=== PATIENT | female | born 1965 | race Caucasian/White ===

== ENCOUNTER 2019-11-23 10:11 | Outpatient (REF) | payer OTHER, SELFPAY ==
[2019-11-23 12:37] LABS: Estimated Average Glucose 117 mg/dL; Hemoglobin A1c % 5.7 %
[2019-11-23 12:44] LABS: Alanine Aminotransferase 34 U/L (0-31); Albumin Level 4.7 g/dL (3.5-5.0); Alkaline Phosphatase 50 U/L (39-117); Aspartate Amino Transferase 21 U/L (5-31); Bilirubin Direct 0.3 mg/dL (0.0-0.5); Bilirubin Total 1.2 mg/dL (0.0-1.0); Total Protein 7.4 g/dL (6.5-8.0)
[2019-11-23 12:47] LABS: Alanine Aminotransferase 34 U/L (0-31); Anion Gap 13 (12-20); Aspartate Amino Transferase 22 U/L (5-31); Blood Urea Nitrogen 18 mg/dL (9-16); Calcium 9.5 mg/dL (8.4-10.2); Carbon Dioxide 27 mmol/L (22-29); Chloride 106 mmol/L (96-108); Cholesterol 225 mg/dL; Estimated Glomerular Filt Rate > 60; Glucose Fasting 110 mg/dL (60-99); HDL Cholesterol 52 mg/dL; LDL Cholesterol Calculated 153 mg/dl; Potassium 4.5 mmol/l (3.3-5.1); Sodium 141 mmol/L (135-145); Triglycerides 104 mg/dL
[2019-11-23 12:54] LABS: Vitamin D 25-OH Total 30.4 ng/mL (>30)
== END 2019-11-23 10:12 | disposition home or self-care (01) ==
LOC: HO.LAB 10:11
PROVIDERS: PCP Internal Medicine; Visit Provider Podiatrist
DX: R73.01 Impaired fasting glucose (principal); E78.5 Hyperlipidemia, unspecified; Z78.0 Asymptomatic menopausal state; B35.1 Tinea unguium
CPT/HCPCS: 80048; 80061; 80076; 82306; 83036; 84450; 84460

== ENCOUNTER 2020-01-25 14:49 | Emergency (ER) | payer OTHER, SELFPAY ==
[2020-01-25 14:52] VITALS: BP 155/105; PULSE 94; RESP 18; TEMP 36.7; O2SAT 100; BMI 28.1
--- NOTE | 2020-01-25 15:40 | ED_ITS ---
HPI - General Adult General Chief complaint: General Medical Stated complaint: reaction Time Seen by Provider: 01/25/20 15:40 History of Present Illness HPI narrative: Patient complains of brief episode of dizziness after receiving an injection where she felt lightheaded, tingling in her tongue, but never felt short of breath or faint, never passed out never had any rash Related Data Allergies Allergy/AdvReac Type Severity Reaction Status Date / Time ampicillin [AMPICILLIN] Allergy Unknown HIVES, Verified 01/25/20 14:56 rash on mouth penicillin V Allergy Unknown rash on Verified 01/25/20 14:56 mouth Penicillins [PENICILLINS] Allergy Unknown HIVES Verified 01/25/20 14:56 rosuvastatin Allergy Unknown myalgia, ^ Verified 01/25/20 14:56 cpk Sulfa (Sulfonamide Allergy Unknown ALTERED Verified 01/25/20 14:56 Antibiotics) WBC, blood [SULFA (SULFONAMIDE cells ANTIBIOTICS)] level abnormal Ampicillin Allergy Unknown Hives Uncoded 01/13/18 00:00 Sulfa Drugs Allergy Unknown white Uncoded 01/13/18 00:00 blood cell reaction Review of Systems Review of Systems: No headache no numbness no weakness no confusion no chest pain no palpitations no shortness of breath no facial swelling no tongue swelling no difficulty breathing or swallowing Yes all other systems are reviewed and are negative PMFSH Past Medical History Source: nursing notes reviewed Medical History (Updated 01/25/20 @ 15:41 by LAYO Crump) No known health problems Social History Social History Advance Directives: No Advance Directives Information Provided: Yes Physical Exam Vital Signs: Vital Signs: Last Vital Signs Temp 98.0 F 01/25/20 14:52 Pulse 94 01/25/20 14:52 Resp 18 01/25/20 14:52 BP 155/105 H 01/25/20 14:52 Pulse Ox 100 01/25/20 14:52 Body Mass Index 28.1 Comfortable relaxed and cooperative, no distress, speaking full sentences Pupils equal round react flight Pharynx is clear with no swelling, mucous membranes are moist Neck is supple Chest is clear to auscultation bilaterally with full symmetric equal breath sounds Heart rate and rhythm regular no murmurs Extremities is full range of motion x4 Neuro no focal deficit, speech and gait are normal, balance is normal, motor is 5 over 5 times 4 Course Course Course Narrative: Patient most likely experienced a mild vasovagal episode and is asymptomatic now and feels fine Discharge Plan Discharge Clinical Impression: Vasovagal episode Patient Disposition: Home, Self-Care Additional Instructions: Reaction was probably from a brief drop in blood pressure related to getting y our shot, it does not sound like an allergic reaction or any serious or dangerous reaction No treatment is needed as you feel back to normal now Return any time any concerns Interventions: ED Discharge Assessment Last Done: 01/25/20 15:47 Discharge Date/Time: 01/25/20 15:47
== END 2020-01-25 15:47 | disposition home or self-care (01) ==
PROVIDERS: Emergency Provider Emergency Medicine Emergency Medical Services; PCP Internal Medicine
DX: R55 Syncope and collapse (principal)
CPT/HCPCS: 99283

== ENCOUNTER 2020-02-20 13:09 | Outpatient (REF) | payer OTHER, SELFPAY ==
--- NOTE | 2020-02-20 13:14 | MM_ITS ---
EXAMINATION: MM DIAGNOSTIC DIGITAL MAMMOGRAPHY, LEFT CLINICAL INFORMATION: Short interval follow-up probable benign parenchymal asymmetry upper outer left breast. Due for yearly. Prior history fibrocystic changes with cyst aspiration at outside facility. The lifetime risk of breast cancer based on the Tyrer-Cuzick Model is 12%. COMPARISON: Mammography: 07/10/2019, 01/25/2019 (diagnostic, BI-RADS 3), 04/03/2018; outside mammography 05/15/2013, 04/01/2011, 09/18/2009, 09/05/2008 ([facility]). TECHNIQUE: Digital mammography is performed in craniocaudal and mediolateral oblique views along with computer-aided detection (CAD). Additional exaggerated CC, spot MLO x2, and ML views are obtained. FINDINGS: The breasts are heterogeneously dense, which may obscure small masses (ACR BI-RADS breast composition Category c). Parenchymal pattern is similar to prior exam. There is no developing density or interval mass or architectural abnormality. There are no abnormal calcifications. Left breast will be reassessed again at time of annual bilateral mammography, due in 6 months. Results are discussed with the patient at time of visit. MM/MM diagnostic mammo unilat LT IMPRESSION: No significant changes from prior diagnostic exam. No developing density. ASSESSMENT: BI-RADS 3: Probably Benign RECOMMENDATION: Diagnostic mammography at time of bilateral annual exam, due in 6 months. This patient's information was entered into a reminder system with a target due date for their next mammogram.
== END 2020-02-20 13:10 | disposition home or self-care (01) ==
LOC: HO.MAMMO 13:09
PROVIDERS: PCP Internal Medicine; Visit Provider Internal Medicine
DX: N64.9 Disorder of breast, unspecified (principal)
CPT/HCPCS: 77065

== ENCOUNTER 2020-09-02 13:27 | Outpatient (REF) | payer OTHER, SELFPAY ==
--- NOTE | ~2020-09-02 | MM_ITS ---
EXAMINATION: MM DIAGNOSTIC DIGITAL BREAST TOMOSYNTHESIS, BILATERAL US DIAGNOSTIC ULTRASOUND BREAST, RIGHT CLINICAL INFORMATION: Due for yearly. Also follow-up probable benign parenchymal asymmetry upper outer left breast. Prior history fibrocystic changes with cyst aspiration at outside facility. The lifetime risk of breast cancer based on the Tyrer-Cuzick Model is 18%. COMPARISON: Mammography: 02/20/2020, 07/10/2019, 01/25/2019 (diagnostic, BI-RADS 3), 04/11/2018, 04/03/2018; outside mammography 05/15/2013, 04/01/2011, 09/18/2009 ([facility] Diagnostic right breast ultrasound 04/11/2018 and diagnostic left breast ultrasound 01/25/2019. TECHNIQUE: Digital breast tomosynthesis is performed in both the craniocaudal and mediolateral oblique views along with computer-aided detection (CAD). Synthesized 2D images are generated from the tomosynthesis. Additional views are obtained: Exaggerated left CC, spot left ML. Ultrasound right breast is targeted to the upper outer quadrant. Grayscale imaging and color Doppler are performed without and with harmonics. FINDINGS: The breasts are heterogeneously dense, which may obscure small masses (ACR BI-RADS breast composition Category c). Left breast parenchymal pattern is similar to prior studies. There is no developing density or interval architectural abnormality or mass or abnormal calcifications. Right breast has smooth partially obscured mass mid upper outer quadrant measuring 2 cm, likely enlarging cyst noted previously. The remainder of the right breast shows no developing density or architectural abnormality or abnormal calcifications. The bilateral axilla and skin contours are unremarkable. Ultrasound right breast demonstrates a benign cyst mid 9:00 position 6 cm from nipple corresponding to finding on mammography and measuring 2.0 x 1.3 x 1.4 cm. There is incomplete fine avascular internal septation. No solid component or debris. No peripheral or internal color flow. There is increased through-transmission of sound. The remainder of the targeted area shows no solid mass or architectural abnormality or focal duct ectasia. Results are discussed with the patient at time of visit. Management plan is for diagnostic bilateral mammography at next bilateral annual exam to conclude long-term surveillance of the left breast initially noted on 01/25/2019. MM/MM tomosynthesis diagnostic BI IMPRESSION: 1. Left: No developing density or interval suspicious changes. 2. Right: Benign cyst mid 9:00 position 2.0 cm. Otherwise unremarkable. ASSESSMENT: BI-RADS 3: Probably Benign RECOMMENDATION: Diagnostic mammography at time of next annual exam, due in 12 months. This patient's information was entered into a reminder system with a target due date for their next mammogram.
== END 2020-09-02 13:28 | disposition home or self-care (01) ==
LOC: HO.MAMMO 13:27
PROVIDERS: Visit Provider Internal Medicine
DX: N64.89 Other specified disorders of breast (principal)
CPT/HCPCS: 76641; 77062; 77066

== ENCOUNTER 2021-07-31 08:18 | Outpatient (REF) | payer OTHER, SELFPAY ==
[2021-07-31 11:45] LABS: Alanine Aminotransferase 43 U/L (0-31); Anion Gap 13 (12-20); Aspartate Amino Transferase 27 U/L (5-31); Blood Urea Nitrogen 19 mg/dL (9-16); Calcium 9.3 mg/dL (8.4-10.2); Carbon Dioxide 26 mmol/L (22-29); Chloride 106 mmol/L (96-108); Cholesterol 225 mg/dL; Estimated Glomerular Filt Rate 55; Glucose Fasting 133 mg/dL (60-99); HDL Cholesterol 45 mg/dL; LDL Cholesterol Calculated 161 mg/dl; Potassium 4.6 mmol/L (3.3-5.1); Sodium 140 mmol/L (135-145); Triglycerides 95 mg/dL
[2021-07-31 11:58] LABS: Vitamin D 25-OH Total 23.8 ng/mL (>30)
[2021-07-31 12:02] LABS: Estimated Average Glucose 123 mg/dL; Hemoglobin A1c % 5.9 %
== END 2021-07-31 08:19 | disposition home or self-care (01) ==
LOC: HO.HMGCLDS 08:18
PROVIDERS: Visit Provider Internal Medicine
DX: Z00.01 Encounter for general adult medical examination with abnormal findings (principal); I10 Essential (primary) hypertension; R73.01 Impaired fasting glucose; E78.5 Hyperlipidemia, unspecified
CPT/HCPCS: 36415; 80048; 80061; 82306; 83036; 84450; 84460

== ENCOUNTER 2021-09-08 09:13 | Outpatient (REF) | payer OTHER, SELFPAY ==
--- NOTE | ~2021-09-08 | MM_ITS ---
EXAMINATION: MM DIAGNOSTIC DIGITAL BREAST TOMOSYNTHESIS, BILATERAL CLINICAL INFORMATION: Due for yearly. Also follow-up probable benign parenchymal asymmetry upper outer left breast, initially noted on diagnostic mammography 01/25/2019. Prior history fibrocystic changes with cyst aspiration at outside facility. The lifetime risk of breast cancer based on the Tyrer-Cuzick Model is 18%. COMPARISON: Mammography: 09/02/2020, 02/20/2020 07/10/2019, 01/25/2019 (diagnostic, BI-RADS 3), 04/11/2018, 04/03/2018, outside mammography 05/15/2013 ([facility]). TECHNIQUE: Digital breast tomosynthesis is performed in both the craniocaudal and mediolateral oblique views along with computer-aided detection (CAD). Synthesized 2D images are generated from the tomosynthesis. Additional views are obtained: Spot left CC, rolled left CC x2. FINDINGS: The breasts are heterogeneously dense, which may obscure small masses (ACR BI-RADS breast composition Category c). Parenchymal pattern is similar to prior studies and there is no significant mass or developing density or architectural abnormality. This concludes long-term surveillance upper-outer quadrant left breast. The cyst mid upper outer right breast noted on prior mammography has resolved. There are no abnormal calcifications. The axilla and skin contours are unremarkable. Results are discussed with the patient at time of visit. MM/MM tomosynthesis diagnostic BI IMPRESSION: No mammographic evidence of malignancy. ASSESSMENT: BI-RADS 2: Benign RECOMMENDATION: Routine annual mammography screening. This patient's information was entered into a reminder system with a target due date for their next mammogram.
== END 2021-09-08 09:14 | disposition home or self-care (01) ==
LOC: HO.MAMMO 09:13
PROVIDERS: PCP Internal Medicine; Visit Provider Internal Medicine
DX: N60.02 Solitary cyst of left breast (principal)
CPT/HCPCS: 77062; 77066

== ENCOUNTER 2021-10-21 16:35 | Outpatient (REF) | payer OTHER, SELFPAY ==
[2021-10-24 00:12] LABS: HPV mRNA E6/E7 rflx Not Detected (Not Detected)
== END 2021-10-21 16:36 | disposition home or self-care (01) ==
LOC: HO.LNP 16:35
PROVIDERS: Visit Provider Advanced Practice Midwife
DX: Z01.419 Encounter for gynecological examination (general) (routine) without abnormal findings (principal)
CPT/HCPCS: 87624; 88142

== ENCOUNTER 2021-11-11 09:31 | Outpatient (REF) | payer OTHER, SELFPAY ==
--- NOTE | ~2021-11-11 | MM_ITS ---
EXAMINATION: BONE DENSITOMETRY CLINICAL INDICATION: Menopause. COMPARISON: Baseline BD dated 04/12/2018. TECHNIQUE: Using a [employer] Tele[employer] DXA System (software version: 13.1) manufactured by [employer], dual-energy x-ray absorptiometry was performed of the lumbar spine and left hip. The images are of good technical quality. Summary results are attached. FINDINGS: AP SPINE L1-L4: Current: BMD 1.193 g/cm2, Z-score 0.4, T-score 0.1, normal, 4.4% decrease from baseline (<5% change is not significant). Baseline: BMD 1.248 g/cm2. LEFT FEMUR, NECK: Current: BMD 0.897 g/cm2, Z-score -0.4, T-score -1.0, normal. Baseline: BMD 0.878 g/cm2. LEFT FEMUR, TOTAL: Current: BMD 0.959 g/cm2, Z-score -0.1, T-score -0.4, normal, 0.5% increase from baseline (<5% change is not significant). Baseline: BMD 0.954 g/cm2. IDENTIFIED RISK FACTORS: Osteoporosis. Menopause. HISTORY OF FRACTURE: None listed. MEDICATIONS: Calcium supplement and/or multivitamin. Vitamin D. MM/XR DEXA axial skeleton IMPRESSION: 1. DIAGNOSIS: Normal bone density based on the lowest T-score value of -1.0 in the femoral neck applying World Health Organization criteria. 2. 10 10-YEAR FRACTURE RISK PREDICTION, FRAX: According to the guidelines, FRAX calculation should only be performed on patients in the osteopenia bone density category. Therefore, FRAX was not performed on this patient. 3. Treatment Recommendations: NOF guidelines recommend consideration for treatment in postmenopausal women and men age 50 and older presenting with the following: -A hip or vertebral (clinical or morphometric) fracture. -T-score less than or equal to -2.5 at the femoral neck or spine after appropriate evaluation to exclude secondary causes. -Low bone mass at the hip or spine and a 10-year fracture probability by FRAX of greater than or equal to 3% for hip fracture or greater than or equal to 20% for major osteoporotic fracture based on the [place] adapted WHO algorithm. 4. Other Recommendations: All treatment decisions require clinical judgment and consideration of individual patient factors, including patient preferences, comorbidities, previous drug use, risk factors not captured in the FRAX model (e.g. frailty, falls, vitamin D deficiency, increased bone turnover, interval significant decline in bone density) and possible under or overestimation of fracture risk by FRAX. FUTURE SCAN RECOMMENDATION: People with diagnosed cases of osteoporosis or at high risk for fracture should have regular bone mineral density tests. For patients eligible for Medicare, routine testing is allowed once every 2 years. The testing frequency can be increased to one year for patients who have rapidly progressing disease, those who are receiving or discontinuing medical therapy to restore bone mass, or have additional risk factors.
== END 2021-11-11 09:32 | disposition home or self-care (01) ==
LOC: HO.MAMMO 09:31
PROVIDERS: Visit Provider Advanced Practice Midwife
DX: Z13.820 Encounter for screening for osteoporosis (principal); Z78.0 Asymptomatic menopausal state; M85.80 Other specified disorders of bone density and structure, unspecified site
CPT/HCPCS: 77080

== ENCOUNTER 2022-10-07 09:35 | Outpatient (AMB) | payer OTHER, SELFPAY ==
[2022-10-07 09:45] VITALS: BP 110/74; PULSE 86; O2SAT 97; BMI 31.6
--- NOTE | 2022-10-07 09:45 | A.OFFPC_ITS ---
Vital Signs 10/07/22 09:45 Height 5 ft 7 in Weight 202 lb BMI 31.6 BP 110/74 Blood Pressure Location Lt brachial Position Sitting Pulse 86 Pulse Source Pulse Oximeter Pulse Oximetry (%) 97 Oxygen Delivery Method Room Air Intake Visit Reasons: Annual /PE Intake Note: Pt is here today for her PE Allergies ampicillin [AMPICILLIN] Allergy (Unknown, Verified 10/07/22 10:24) HIVES, rash on mouth penicillin V Allergy (Unknown, Verified 10/07/22 10:24) rash on mouth Penicillins [PENICILLINS] Allergy (Unknown, Verified 10/07/22 10:24) HIVES Sulfa (Sulfonamide Antibiotics) [SULFA (SULFONAMIDE ANTIBIOTICS)] Allergy (Unknown, Verified 10/07/22 10:24) ALTERED WBC, blood cells level abnormal rosuvastatin Adverse Reaction (Unknown, Verified 10/07/22 10:25) myalgia, ^ cpk Ampicillin Allergy (Unknown, Uncoded 10/07/22 10:24) Hives Sulfa Drugs Allergy (Unknown, Uncoded 10/07/22 10:24) white blood cell reaction Medication List - Last Reconciled 10/07/22 by Isamar Anthony MD calcium and magnesium carbonat 311-232 mg tabs PO cholecalciferol (vitamin D3) 50 mcg PO DAILY cholecalciferol (vitamin D3) 25 mcg PO DAILY lisinopril 5 mg PO DAILY multivitamin 1 tab PO DAILY vitamin B complex 1 tab PO DAILY Tobacco use date assessed: 10/07/22 Dental Screening Dental Screen Date: 10/07/22 Did you have a dental visit in the last 12 months?: Yes Did you have a dental problem in the last 6 months where you did not have access to dental care?: No Was dental information given to patient?: Patient has dentist HPI Annual /PE HPI Details 57-year-old lady with hypertension, impaired fasting glucose, dyslipidemia, here today for physical exam. She has been feeling well, with no new complaints except for mildly pruritic rash in her right axillary area which has been present now for the last several weeks. He has been applying [id number] cortisone cream and prescribed by her baby counselor which has not afforded any resolution . [facility] Medical History (Updated 10/07/22 @ 10:27 by Isamar Anthony MD) Cervical cancer screening Dyslipidemia HTN (hypertension) Impaired fasting glucose No known health problems Osteopenia Subcutaneous nodule of right thumb Tinea corporis Surgical History Hx of dilation and curettage Family History Brother Substance use disorder Brother Substance use disorder Brother Substance use disorder Maternal Grandmother History of breast cancer, Onset Age: 80 Father Hyperlipemia Hypertension Mother Parkinson disease Social History Housing: House Alcohol intake: current Alcohol intake frequency: a few times a week Alcohol type: wine Patient Tobacco Use Status: Never used Tobacco e-Cigarette/Vaping Use: Never Used service: No Current occupational status: employed Cognitive needs: No Hearing needs: No Vision needs: Yes Questionnaire PHQ-9 Over the last 2 weeks, how often have you been bothered by any of the following problems? 1. Little interest or pleasure in doing things: not at all 2. Feeling down, depressed, or hopeless: not at all 3. Trouble falling or staying asleep, or sleeping too much: several days 4. Feeling tired or having little energy: several days 5. Poor appetite or overeating: not at all 6. Feeling bad about yourself - or that you are a failure or have let yourself or your family down: not at all 7. Trouble concentrating on things, such as reading the newspaper or watching television: not at all 8. Moving or speaking so slowly that other people could have noticed. Or the opposite - being so fidgety or restless that you have been moving around a lot more than usual: not at all 9. Thoughts that you would be better off or of hurting yourself in some way: not at all Total score: 2 Depression Screening Interpretation: Negative 72557 - PHQ-9 Billing: Yes Source: Developed by Drs. Wolf Pickering, Annie Singh, Leonid Fleming and colleagues, with an educational markie from [employer]. Thrive Questionnaire Date Thrive assessed: 10/07/22 I am a: Patient What is your living situation today?: I have a steady place to live Within the past 12 months, did the food you bought not last and you didn't have the money to get more?: Never true Within the past 12 months, did you worry whether your food would run out before you got money to buy more?: Never true Do you have trouble getting transportation to medical appointments?: No Do you have trouble paying your heating and electricity bill?: No Do you have trouble taking care of your child, family member or friend?: No Do you have trouble with day-to-day activities such as bathing, preparing meals, shopping, managing finances, etc.?: No Are you currently unemployed and looking for a job?: No Are you interested in more education?: No AUDIT C Alcohol Use Questionnaire (AUDIT-C) 1. How often do you have a drink containing alcohol?: Monthly or less 2. How many drinks containing alcohol do you have on a typical day when you are drinking?: 1 or 2 3. How often do you have six or more drinks on one occasion?: Never Total Score: 1 LYNDSEY-7 AMB Questionnaire LYNDSEY-7 Date LYNDSEY - 7 assessed: 10/07/22 Feeling nervous, anxious, or on edge: 0 = Not at all Not being able to stop or control worryin = Not at all Worrying too much about different things: 1 = Several days Trouble relaxin = Not at all Being so restless that it is hard to sit still: 0 = Not at all Becoming easily annoyed or irritable: 0 = Not at all Feeling afraid as if something awful might happen: 0 = Not at all Total LYNDSEY-7 score (0-4 normal; 5-9 mild; 10-14 moderate; 15-21 severe): 1 Source: Developed by Drs. Wolf Pickering, Annie Singh, Leonid Fleming and colleagues, with an educational markie from [employer]. LYNDSEY-7 Assessment Billing LYNDSEY-7 Assessment Tool: LYNDSEY-7 Assessment 47914 Review of Systems Const Denies body aches, Denies fatigue, Denies fever(s), Denies headache(s) and Denies weakness Eyes Denies change in vision ENT Denies dizziness, Denies headache(s), Denies nasal congestion and Denies nasal discharge Card Denies chest pain, Denies lightheadedness, Denies palpitations and Denies dyspnea Resp Denies chest congestion, Denies cough, Denies dyspnea and Denies wheezing GI Denies abdominal pain, Denies change in bowel habits and Denies heartburn Denies hematuria, Denies urinary frequency, Denies dysuria and Denies urinary urgency Musc Reports no additional complaints Skin/Breast Denies breast pain, Denies breast mass and Denies lesions Neuro Denies dizziness, Denies headache(s) and Denies weakness Psych Reports no additional complaints Endo Denies fatigue, Denies polydipsia, Denies polyuria and Denies palpitations Wilton/Lymph Denies easy bruising Aller/Immun Denies seasonal rhinorrhea and Denies wheezing Physical exam (Primary Care) Vital Signs: Last Vital Signs Pulse 86 10/07/22 09:45 BP 110/74 10/07/22 09:45 Pulse Ox 97 10/07/22 09:45 Oxygen Delivery Method Room Air 10/07/22 09:45 BMI result Body Mass Index 31.6 BMI Assessment/Plan discussion: High BMI High, discussed plan: weight reduction, dietary and physical activity Tobacco/Smoking Status: Tobacco use Status Tobacco use date assessed 10/07/22 10/07/22 09:54 Patient Tobacco Use Status Never used Tobacco 10/07/22 09:54 e-Cigarette/Vaping Use Never Used 10/07/22 09:54 PHQ-9: PHQ-9 Score PHQ-9: Total score 3 10/07/22 10:26 Depression Screening Interpretation: Negative Thrive Assessment: Date of Thrive Assessment Date Thrive assessed 10/07/22 10/07/22 09:54 Advance Care Planning discussion: Exists, not on file Date of discussion: 10/07/22 Who was present: patient Forms completed: Health Care Proxy and MOLST Time spent: 1-15 minutes, not on file Actual minutes spent: 15 Const Other: Alert oriented x3, no acute distress noted ambulatory normal gait, obese Orientation/consciousness: patient oriented x3 HENMT Ears: TM's normal bilaterally and EAC's normal General nose exam: Normal external nose present and No nasal discharge present Mouth: Normal oral and palatal mucosa present and moist mucous membranes Eyes General: appearance normal, both eyes and all related structures Neck Other: Supple, no lymphadenopathy, nonpalpable thyroid Chest Breast/axilla palpation: normal palpation of the breasts Resp Auscultation: clear to auscultation bilaterally Cardio Other: S1-S2 present regular rate and rhythm no murmurs GI Other: Normal bowel sounds, soft, nontender, no mass palpated General: Yes no CVA tenderness and Yes deferred Back/Spine/Pelvis Back: no CVA tenderness and No back tenderness Skin Other: Erythematous rash with lacy borders on right axillary area with central clearing Neuro General: patient oriented x3, gait normal, tone normal, moves all extremities, Normal light touch and pain sensation, no focal motor deficits and CN's II-XI intact bilaterally Extrem Other: small nodular lesion over the dorsal aspect of the right thumb? General: Yes full ROM, Yes no joint enlargement, Yes no pedal edema, Yes no calf tenderness and Yes normal gait Psych Appearance: grossly normal Mental Status: mental status grossly normal Affect: normal affect Attitude: cooperative Assessment and Plan Assessment & Plan (1) Annual visit for general adult medical examination with abnormal findings: Code(s): Z00.01 - Encounter for general adult medical examination with abnormal findings Plan: Will check appropriate labs. Recommended dental visit every 6 months and regular eye exams, at least every 2 years. Take adequate calcium in diet and vitamin-D 3 at 2000 IU per cap once a day, in addition to weight-bearing exercises to help maintain good muscle tone and weight control. Instructed to do self-breast exam, and continue to get yearly mammogram, she already has a mammogram scheduled for 10/26/2022. she is up-to-date with her cervical cancer screening, goes to [facility], and is up-to-date with her screening colonoscopy. She has had her COVID vaccine but has not yet had her booster, reminded to get her flu shot yearly and is up-to-date with her Tdap. Recommended also to get vaccinated against shingles, which can be administered to pharmacy. (2) Dyslipidemia: Code(s): E78.5 - Hyperlipidemia, unspecified Plan: Fasting lipid panel ordered today. Stressed importance of adherence to low- cholesterol diet and regular exercise, at least 30 minutes 3 to 4 times a week. Advised patient to make healthy food choices, eat more fruits, vegetables, whole grains, wild caught fish and low-fat dairy. Limit amount of meat and fried or fatty food products, as well as processed foods and fast foods. (3) Impaired fasting glucose: Code(s): R73.01 - Impaired fasting glucose Plan: Your fasting blood sugars were elevated above 100 mg/dL in the past. Ordered fasting glucose and hemoglobin A1c today.. Impaired glucose metabolism O2 at risk for developing diabetes mellitus type 2, as well as heart attack and stroke later on. Lifestyle changes at just weight loss, healthy eating habits, and reg ular exercise are important, and can prevent the progression to diabetes (4) HTN (hypertension): Code(s): I10 - Essential (primary) hypertension Plan: Blood pressure at goal of less than 130/80. Continue with current medication. Reinforced importance of following a low sodium diet, getting regular exercise, and lowering stress levels. (5) Tinea corporis: Code(s): B35.4 - Tinea corporis Plan: Prescription sent for ketoconazole 2% cream to apply to affected area twice a day for the next 10 days. Return to clinic if no improvement of symptoms noted Orders: Orders Aspartate Amino Transferase 10/07/22 E78.5 - Hyperlipidemia, unspecified, I10 - Essential (primary) hypertension, R73.01 - Impaired fasting glucose, Z00.01 - Encounter for general adult medical examination with abnormal findings, Z78.0 - Asymptomatic menopausal state Basic Metabolic Panel Fasting 10/07/22 E78.5 - Hyperlipidemia, unspecified, I10 - Essential (primary) hypertension, R73.01 - Impaired fasting glucose, Z00.01 - Encounter for general adult medical examination with abnormal findings, Z78.0 - Asymptomatic menopausal state Hemoglobin A1c 10/07/22 E78.5 - Hyperlipidemia, unspecified, I10 - Essential (primary) hypertension, R73.01 - Impaired fasting glucose, Z00.01 - Encounter for general adult medical examination with abnormal findings, Z78.0 - Asymptomatic menopausal state Lipid Panel 10/07/22 E78.5 - Hyperlipidemia, unspecified, I10 - Essential (primary) hypertension, R73.01 - Impaired fasting glucose, Z00.01 - Encounter for general adult medical examination with abnormal findings, Z78.0 - Asymptomatic menopausal state Vitamin D 25-OH Total 10/07/22 E78.5 - Hyperlipidemia, unspecified, I10 - Essential (primary) hypertension, R73.01 - Impaired fasting glucose, Z00.01 - Encounter for general adult medical examination with abnormal findings, Z78.0 - Asymptomatic menopausal state Medications: New ketoconazole 2% 1 appl topical BID 10 days 30 grams 0RF B35.4 - Tinea corporis Coding Level of Care Code Est Pt Prev Care 40-64y(69330) Diagnoses Annual visit for general adult medical examination with abnormal findings Z00.01 Dyslipidemia E78.5 Impaired fasting glucose R73.01 HTN (hypertension) I10 Tinea corporis B35.4 Additional Codes Vital Signs *Quality* - Advance Care Planning discussion: Exists, not on file ([id number]) Vital Signs *Quality* - Time spent: 1-15 minutes, not on file ([id number]) LYNDSEY-7 Assessment Billing - LYNDSEY-7 Assessment Tool: LYNDSEY-7 Assessment [id number] ([id number])
== END 2022-10-07 10:37 | disposition home or self-care (01) ==
PROVIDERS: PCP Internal Medicine; Visit Provider Internal Medicine
DX: Z00.01 Encounter for general adult medical examination with abnormal findings (principal); E78.5 Hyperlipidemia, unspecified; R73.01 Impaired fasting glucose; I10 Essential (primary) hypertension; B35.4 Tinea corporis; Z00.00 Encounter for general adult medical examination without abnormal findings
CPT/HCPCS: 1123F; 1124F; 99396

== ENCOUNTER 2022-10-07 10:39 | Outpatient (REF) | payer OTHER, SELFPAY ==
[2022-10-07 13:18] LABS: Estimated Average Glucose 126 mg/dL
[2022-10-07 13:25] LABS: Anion Gap 12 (12-20); Aspartate Amino Transferase 36 U/L (5-31); Blood Urea Nitrogen 17 mg/dL (9-16); Calcium 9.9 mg/dL (8.4-10.2); Carbon Dioxide 27 mmol/L (22-29); Chloride 105 mmol/L (96-108); Cholesterol 254 mg/dL (<200); Estimated Glomerular Filt Rate > 60; Glucose Fasting 126 mg/dL (60-99); HDL Cholesterol 53 mg/dL (>40); LDL Cholesterol Calculated 178 mg/dL (<100); Potassium 4.4 mmol/L (3.3-5.1); Sodium 140 mmol/L (135-145); Triglycerides 115 mg/dL (<150)
[2022-10-07 13:41] LABS: Vitamin D 25-OH Total 65.2 ng/mL (>30)
== END 2022-10-07 10:40 | disposition home or self-care (01) ==
LOC: HO.HMGCLDS 10:39
PROVIDERS: PCP Internal Medicine; Visit Provider Internal Medicine
DX: Z00.01 Encounter for general adult medical examination with abnormal findings (principal); E78.5 Hyperlipidemia, unspecified; I10 Essential (primary) hypertension; R73.01 Impaired fasting glucose; Z78.0 Asymptomatic menopausal state
CPT/HCPCS: 36415; 80048; 80061; 82306; 83036; 84450

== ENCOUNTER 2022-10-26 09:22 | Outpatient (REF) | payer OTHER, SELFPAY ==
--- NOTE | ~2022-10-26 | MM_ITS ---
EXAMINATION: MM SCREENING DIGITAL BREAST TOMOSYNTHESIS, BILATERAL CLINICAL INFORMATION: Screening. Asymptomatic. Prior history fibrocystic changes with cyst aspiration at outside facility. COMPARISON: Mammography: 10/09/2021, 09/02/2020, 02/20/2020 07/10/2019, 01/25/2019 (diagnostic, BI-RADS 3), 04/11/2018, 04/03/2018, outside mammography 05/15/2013 ([facility]). TECHNIQUE: Digital breast tomosynthesis is performed in both the craniocaudal and mediolateral oblique views along with computer-aided detection (CAD). Synthesized 2D images are generated from the tomosynthesis. A full-field laterally exaggerated right CC was also obtained. FINDINGS: The breasts are heterogeneously dense, which may obscure small masses (ACR BI-RADS breast composition Category c). There are bilateral small subcentimeter circumscribed isodense masses in both breasts, consistent with waxing and waning cysts, and are benign. There are no suspicious masses, suspicious grouped calcifications, or areas of architectural distortion. The overall parenchymal pattern is stable from prior exams. Most notably, the left breast upper outer quadrant is unchanged in appearance. No skin changes. No axillary abnormalities. MM/MM tomosynthesis screening BI IMPRESSION: No mammographic evidence of malignancy. Stable benign findings. ASSESSMENT: BI-RADS BI-RADS 2 - Benign Findings RECOMMENDATION: Routine annual mammography screening. 1 year F/U This examination should not preclude the clinical evaluation of a suspicious palpable abnormality. This patient's information was entered into a reminder system with a target due date for their next mammogram.
== END 2022-10-26 09:23 | disposition home or self-care (01) ==
LOC: HO.MAMMO 09:22
PROVIDERS: PCP Internal Medicine; Visit Provider Internal Medicine
DX: Z12.31 Encounter for screening mammogram for malignant neoplasm of breast (principal)
CPT/HCPCS: 77063; 77067

== ENCOUNTER → 2022-10-26 09:30 | Outpatient (BNV) | payer OTHER, SELFPAY | PROVIDERS: PCP Internal Medicine; Visit Provider Radiology Diagnostic Radiology | DX: Z12.31 Encounter for screening mammogram for malignant neoplasm of breast (principal) | CPT/HCPCS: 77063; 77067 ==

== ENCOUNTER 2022-12-15 09:54 | Outpatient (AMB) | payer OTHER, SELFPAY ==
[2022-12-15 11:31] VITALS: BP 108/72; PULSE 73; TEMP 36.9; O2SAT 100; BMI 31.6
--- NOTE | 2022-12-15 11:31 | MHC.OFFWIV ---
Intake Vital Signs 12/15/22 11:31 Height 5 ft 7 in Weight 202 lb BMI 31.6 BP 108/72 Blood Pressure Location Rt brachial Position Sitting Pulse 73 Pulse Source Pulse Oximeter Temp 98.4 F Temp Source Temporal Artery Scan Pulse Oximetry (%) 100 Oxygen Delivery Method Room Air Intake Visit Reasons: EP Left lower abdomen pain 3 days Intake Note: pt in here for c/o left lower abd pain x3 days, had a colonoscopy recently and was diagnosed with diverticulitis, and thinks the abd pain is related to this Patient Tobacco Use Status: Never used Tobacco Allergies ampicillin [AMPICILLIN] Allergy (Unknown, Verified 12/15/22 11:32) HIVES, rash on mouth penicillin V Allergy (Unknown, Verified 12/15/22 11:32) rash on mouth Penicillins [PENICILLINS] Allergy (Unknown, Verified 12/15/22 11:32) HIVES Sulfa (Sulfonamide Antibiotics) [SULFA (SULFONAMIDE ANTIBIOTICS)] Allergy (Unknown, Verified 12/15/22 11:32) ALTERED WBC, blood cells level abnormal rosuvastatin Adverse Reaction (Unknown, Verified 12/15/22 11:32) myalgia, ^ cpk Ampicillin Allergy (Unknown, Uncoded 10/07/22 10:24) Hives Sulfa Drugs Allergy (Unknown, Uncoded 10/07/22 10:24) white blood cell reaction Do you need a note to return to daycare/school/sports/work: Yes HPI HPI Comments History of Present Illness Details Patient is a 57-year-old female in today for sick visit. Patient complains of left lower quadrant abdominal pain x2 days with some nausea, no vomiting. Patient reports low-grade fever after her dose of Tylenol wears off. Patient gets little relief with Tylenol. Denies blood in stool, black tarry stools, Or change in bowel habit. Patient has tried stool softeners with little effect. She states that today she only has pain when she presses on the localized area. On past colonoscopy patient had diverticulosis. Patient has no history of this happening before. Patient has tender left lower quadrant, pain on palpation. bowel sounds hyperactive. Negative McBurney's sign. [facility] Medical History (Updated 12/15/22 @ 12:20 by DEBORAH Hernandez) Abdominal pain Tinea corporis Osteopenia Subcutaneous nodule of right thumb Cervical cancer screening HTN (hypertension) Impaired fasting glucose Dyslipidemia No known health problems Surgical History Hx of dilation and curettage Family History Brother Substance use disorder Brother Substance use disorder Brother Substance use disorder Maternal Grandmother History of breast cancer, Onset Age: 80 Father Hyperlipemia Hypertension Mother Parkinson disease Social History Housing: House Alcohol intake: current Alcohol intake frequency: a few times a week Alcohol type: wine Patient Tobacco Use Status: Never used Tobacco e-Cigarette/Vaping Use: Never Used service: No Current occupational status: employed Cognitive needs: No Hearing needs: No Vision needs: Yes Review of Systems Const All systems reviewed & are unremarkable except as noted in HPI and below ENT Denies dizziness Card Denies chest pain GI Reports abdominal pain, Denies melena, Denies hematochezia, Reports loose stools and Reports nausea Neuro Denies dizziness Physical Exam Vital Signs: Last Vital Signs Temp 98.4 F 12/15/22 11:31 Pulse 73 12/15/22 11:31 BP 108/72 12/15/22 11:31 Pulse Ox 100 12/15/22 11:31 Oxygen Delivery Method Room Air 12/15/22 11:31 BMI result Body Mass Index 31.6 vital signs reviewed and stable Const General: cooperative and no acute distress Orientation/consciousness: patient oriented x3 Limitations: no limitations GI Inspection: Yes normal to inspection Palpation (GI): Tenderness to palpation present (GI) in the LLQ Percussion: Yes normal to percussion Auscultation: Hyperactive bowel sounds present Neuro General: patient oriented x3 Assessment & Plan Assessment & Plan (1) Left lower quadrant pain: Code(s): R10.32 - Left lower quadrant pain Plan: will obtain abdominal CT scan. Will obtain labs. Not going to utilize pharmacological intervention at this time until results received from tests. Patient will continue to use modified diet, and to utilize Tylenol as needed for pain or fever. Patient has been educated on signs of worsening symptoms and when to report back to the walk-in clinic or when to present to the emergency room. Patient is agreeable to this plan Coding Level of Care Code Est Pt Level 3 (92269) Diagnoses Left lower quadrant pain R10.32 Time Spent (min) 25
== END 2022-12-15 12:53 | disposition home or self-care (01) ==
PROVIDERS: PCP Internal Medicine; Visit Provider Nurse Practitioner Primary Care
DX: R10.32 Left lower quadrant pain (principal)
CPT/HCPCS: 99213

== ENCOUNTER 2022-12-15 12:16 | Outpatient (REF) | payer OTHER, SELFPAY ==
[2022-12-15 13:27] LABS: Appearance Urine Clear; Color Urine Yellow; Glucose Urine UA Negative (Negative); Leukocyte Esterase Urine Negative (Negative); Nitrite Urine Negative (Negative); PH 5.5 (5.0-9.0); Urine Blood Negative (Negative); Urine Ketones Negative (Negative); Urine Protein Negative (Neg-Trace)
[2022-12-15 13:31] LABS: MANUAL DIFF FLAG NO
[2022-12-15 13:42] LABS: Basophils Percent Auto 0.3 % (0-2); Eosinophils Absolute Auto 0.1 X10*3/uL (0.0-0.4); Eosinophils Percent Auto 0.5 % (0-4); Hematocrit 39.9 % (37.0-47.0); Hemoglobin 13.4 g/dl (12.0-16.0); Imm Gran Abs Auto 0.03 X10*3/uL (0.00-0.03); Imm Gran Pct Auto 0.3 % (0.0-0.4); Lymphocytes Absolute Auto 3.7 X10*3/uL (1.2-4.9); Lymphocytes Percent Auto 30.9 % (20-40); Mean Corpuscular HGB Conc 33.6 g/dl (31.0-35.0); Mean Corpuscular Hemoglobin 32.6 pg (27.0-33.0); Mean Corpuscular Volume 97.1 fL (80.0-98.0); Mean Platelet Volume 13.2 fL (9.4-12.3); Monocytes Absolute Auto 0.6 X10*3/uL (0.1-1.2); Monocytes Percent Auto 5.2 % (2-11); Neutrophils Absolute Auto 7.5 x10*3/uL (2.0-8.3); Neutrophils Percent Auto 62.8 % (45-73); Platelet Count 165 X10*3/uL (160-400); Red Blood Count 4.11 X10*6/uL (4.20-5.50); Red Cell Distribution Width 12.4 % (11.0-16.0)
[2022-12-15 14:11] LABS: Alanine Aminotransferase 29 U/L (0-31); Albumin Level 4.4 g/dL (3.5-5.0); Alkaline Phosphatase 50 U/L (39-117); Anion Gap 11 (12-20); Aspartate Amino Transferase 18 U/L (5-31); Blood Urea Nitrogen 10 mg/dL (9-16); Calcium 9.5 mg/dL (8.4-10.2); Carbon Dioxide 26 mmol/L (22-29); Chloride 107 mmol/L (96-108); Estimated Glomerular Filt Rate 60; Glucose Random 105 mg/dL (60-115); Potassium 4.4 mmol/L (3.3-5.1); Sodium 140 mmol/L (135-145); Total Protein 7.6 g/dL (6.5-8.0)
== END 2022-12-15 12:17 | disposition home or self-care (01) ==
LOC: HO.HMGCLDS 12:16
PROVIDERS: PCP Internal Medicine; Visit Provider Nurse Practitioner Primary Care
DX: R10.9 Unspecified abdominal pain (principal)
CPT/HCPCS: 36415; 80053; 81003; 85025

== ENCOUNTER 2022-12-15 13:16 | Outpatient (REF) | payer OTHER, SELFPAY ==
--- NOTE | ~2022-12-15 | CT_ITS ---
EXAMINATION: CT ABDOMEN AND PELVIS WITH CONTRAST CLINICAL INFORMATION: Left lower quadrant pain COMPARISON: None available. TECHNIQUE: Multidetector volumetric images were obtained from the superior aspect of the liver through the pubic symphysis following administration 85 mL of Omnipaque 350 intravenous contrast. Sagittal and coronal reformatted images were obtained on the technologist's workstation. Oral contrast: Yes This CT examination was performed using dose optimization techniques as appropriate, variously including the following: *Automated exposure control *Adjustment of mA and/or kV according to patient size (this includes techniques or standardized protocols for targeted exams where dose is matched to indication/reason for exam; i.e. extremities or head) *Use of iterative reconstruction technique DLP: 512 mGy-cm FINDINGS: LUNG BASES: The visualized lung bases are unremarkable. LIVER, GALLBLADDER, AND BILIARY TREE: The liver is normal in size and shape. The liver is low in attenuation suggestive of fatty infiltration. There were several small low-attenuation, largest measuring 5 mm low-attenuation lesion in the posterior segment of the right lobe of the liver axial image 28 series 3. These are difficult to accurately characterize due to size. No other focal hepatic lesion or biliary ductal dilatation is present. The gallbladder is unremarkable with no evidence of radiopaque gallstones, gallbladder wall thickening, or obvious pericholecystic inflammatory changes. PANCREAS: Unremarkable. SPLEEN: Unremarkable. ADRENAL GLANDS: Unremarkable. KIDNEYS AND URETERS: The kidneys are normal in size, shape, and attenuation. No hydronephrosis, hydroureter, or calculi seen. Small left renal cyst. No imaging follow-up recommended. No perinephric stranding. BLADDER: Unremarkable. GASTROINTESTINAL TRACT: There is mild diverticulosis of the distal colon. There is focal wall thickening of the distal left colon. There is significant stranding of the surrounding fat. These are suggestive of diverticulitis. No evidence of obstruction, perforation or abscess. The small and large bowel are otherwise unremarkable. The appendix is unremarkable. ABDOMINAL WALL: Small umbilical hernia containing fat.. LYMPH NODES: Normal. VASCULAR: Unremarkable. PELVIC VISCERA: Unremarkable. OSSEOUS STRUCTURES: Degenerative disc disease at L4-L5 and L5-S1. CT/CT abdomen pelvis w IV con IMPRESSION: Diverticulitis of the distal left colon. Fatty liver. Small liver lesions difficult to characterize due to small size. Fleischner guidelines were followed. Findings will be communicated by the [facility] workflow land surveying manager
[2022-12-15] MEDS: Barium Sulfate Oral (Berry) 450 ML ORAL.SUSP 900 ML PO (15:51)
[2022-12-15] MEDS: iohexoL 350 MG/ML 100 ML INFUS..BTL IV (15:52)
== END 2022-12-15 13:17 | disposition home or self-care (01) ==
LOC: HO.CT 13:16
PROVIDERS: Visit Provider Nurse Practitioner Primary Care
DX: R10.32 Left lower quadrant pain (principal)
CPT/HCPCS: 74177; Q9967

== ENCOUNTER 2022-12-21 10:16 | Outpatient (REF) | payer OTHER, SELFPAY ==
[2022-12-21 10:38] LABS: MANUAL DIFF FLAG NO
[2022-12-21 10:48] LABS: Basophils Percent Auto 0.5 % (0-2); Eosinophils Absolute Auto 0.1 X10*3/uL (0.0-0.4); Eosinophils Percent Auto 1.8 % (0-4); Hematocrit 43.1 % (37.0-47.0); Hemoglobin 14.9 g/dl (12.0-16.0); Imm Gran Abs Auto 0.01 X10*3/uL (0.00-0.03); Imm Gran Pct Auto 0.2 % (0.0-0.4); Lymphocytes Absolute Auto 1.9 X10*3/uL (1.2-4.9); Lymphocytes Percent Auto 28.3 % (20-40); Mean Corpuscular HGB Conc 34.6 g/dl (31.0-35.0); Mean Corpuscular Hemoglobin 32.3 pg (27.0-33.0); Mean Corpuscular Volume 93.5 fL (80.0-98.0); Mean Platelet Volume 12.2 fL (9.4-12.3); Monocytes Absolute Auto 0.6 X10*3/uL (0.1-1.2); Monocytes Percent Auto 9.5 % (2-11); Neutrophils Percent Auto 59.7 % (45-73); Platelet Count 221 X10*3/uL (160-400); Red Blood Count 4.61 X10*6/uL (4.20-5.50); Red Cell Distribution Width 12.1 % (11.0-16.0); White Blood Count 6.6 X10*3/uL (4.8-10.8)
[2022-12-21 11:18] LABS: Alanine Aminotransferase 142 U/L (0-31); Albumin Level 4.4 g/dL (3.5-5.0); Alkaline Phosphatase 50 U/L (39-117); Amylase 45 U/L (28-100); Anion Gap 14 (12-20); Aspartate Amino Transferase 106 U/L (5-31); Bilirubin Total 0.4 mg/dL (0.0-1.0); Blood Urea Nitrogen 12 mg/dL (9-16); Carbon Dioxide 23 mmol/L (22-29); Chloride 110 mmol/L (96-108); Estimated Glomerular Filt Rate 50; Glucose Random 93 mg/dL (60-115); Lipase 38 U/L (8-78); Potassium 4.7 mmol/L (3.3-5.1); Sodium 142 mmol/L (135-145); Total Protein 7.7 g/dL (6.5-8.0)
[2022-12-21 11:25] LABS: Erythrocyte Sedimentation Rate 22 MM/HR (0-20)
== END 2022-12-21 10:17 | disposition home or self-care (01) ==
LOC: HO.LAB 10:16
PROVIDERS: PCP Internal Medicine; Visit Provider Nurse Practitioner Primary Care
DX: K57.92 Diverticulitis of intestine, part unspecified, without perforation or abscess without bleeding (principal)
CPT/HCPCS: 36415; 80053; 82150; 83690; 85025; 85652

== ENCOUNTER 2022-12-22 11:41 | Outpatient (REF) | payer OTHER, SELFPAY ==
--- NOTE | ~2022-12-22 | US_ITS ---
EXAMINATION: US ABDOMEN COMPLETE CLINICAL INFORMATION: Elevated LFTs. COMPARISON: CT abdomen and pelvis 12/15/2022 TECHNIQUE: Real-time imaging of the abdominal viscera. FINDINGS: PANCREAS: Pancreatic head and body normal. Tail obscured by bowel gas. ABDOMINAL AORTA: The proximal, mid, and distal segments are normal in caliber. INFERIOR VENA CAVA: Visualized portions are normal. LIVER: Increased echotexture in the liver consistent with steatosis. Right lobe cyst at 6 mm. Mild fatty sparing near the gallbladder. No suspicious lesions or intrahepatic biliary dilatation. GALLBLADDER: Normal. The gallbladder is physiologically distended without evidence of stones, sludge, polyps, wall thickening or pericholecystic fluid. COMMON BILE DUCT: Normal in caliber measuring 0.3 cm in diameter. RIGHT KIDNEY: Normal. No hydronephrosis. No renal calculi or focal parenchymal lesions. The kidney measures 10.7 cm in maximum dimension. LEFT KIDNEY: Normal. No hydronephrosis. No renal calculi or focal parenchymal lesions. The kidney measures 10.7 cm in maximum dimension. SPLEEN: Normal. The spleen measures 9.7 cm in maximum dimension. FREE FLUID: None. US/US abdomen complete IMPRESSION: Hepatic steatosis. No gallstones or biliary dilatation.
== END 2022-12-22 11:42 | disposition home or self-care (01) ==
LOC: HO.US 11:41
PROVIDERS: PCP Internal Medicine; Visit Provider Nurse Practitioner Primary Care
DX: R74.8 Abnormal levels of other serum enzymes (principal)
CPT/HCPCS: 76700

== ENCOUNTER 2022-12-23 09:55 | Outpatient (AMB) | payer OTHER, SELFPAY ==
[2022-12-23 10:11] VITALS: BP 136/80; PULSE 78; O2SAT 98; BMI 31.1
--- NOTE | 2022-12-23 10:11 | A.OFFPC_ITS ---
Vital Signs 12/23/22 10:11 Height 5 ft 7 in Weight 198 lb 6 oz BMI 31.1 BP 136/80 Blood Pressure Location Lt brachial Position Sitting Pulse 78 Pulse Source Pulse Oximeter Pulse Oximetry (%) 98 Oxygen Delivery Method Room Air Intake Visit Reasons: [place] follow up/diverticulitis Intake Note: pt is here for a follow up from the walk-in for Diverticulitis Allergies ampicillin [AMPICILLIN] Allergy (Unknown, Verified 03/30/23 02:01) HIVES, rash on mouth penicillin V Allergy (Unknown, Verified 03/30/23 02:01) rash on mouth Penicillins [PENICILLINS] Allergy (Unknown, Verified 03/30/23 02:01) HIVES Sulfa (Sulfonamide Antibiotics) [SULFA (SULFONAMIDE ANTIBIOTICS)] Allergy (Unknown, Verified 03/30/23 02:01) ALTERED WBC, blood cells level abnormal rosuvastatin Adverse Reaction (Unknown, Verified 03/30/23 02:01) myalgia, ^ cpk Ampicillin Allergy (Unknown, Uncoded 03/30/23 02:01) Hives Sulfa Drugs Allergy (Unknown, Uncoded 03/30/23 02:01) white blood cell reaction Medication List - Last Reconciled 12/23/22 by Isamar Anthony MD cholecalciferol (vitamin D3) 25 mcg PO DAILY ciprofloxacin HCl 500 mg PO Q12H lisinopril 5 mg PO DAILY metronidazole 500 mg PO Q8H multivitamin 1 tab PO DAILY Tobacco use date assessed: 12/23/22 Dental Screening Dental Screen Date: 12/23/22 Did you have a dental visit in the last 12 months?: Yes Did you have a dental problem in the last 6 months where you did not have access to dental care?: No Was dental information given to patient?: Patient has dentist HPI WI follow up/diverticulitis HPI Details 58-year-old lady here today for follow-u p after recent visit to the walk-in clinic, where she presented with acute l eft lower quadrant abdominal pain x2 days with some nausea, no vomiting accompanied by low-grade fever but no lock blood in stool or change in bowel habits reported. CT of abdomen pelvis showed evidence of acute diverticulitis. Ultrasound of abdomen did not show any abnormality. She was placed on ciprofloxacin which she has already finished taking and reports feeling better, with resolution of symptoms reported. Labs done at that time did not show any leukocytosis , no lipase or amylase elevations, but did show elevated liver transaminases. [facility] Medical History Elevated liver transaminase level Hx of diverticulitis of colon Tinea corporis Osteopenia Subcutaneous nodule of right thumb Cervical cancer screening HTN (hypertension) Impaired fasting glucose Dyslipidemia No known health problems Surgical History Hx of dilation and curettage Family History Brother Substance use disorder Brother Substance use disorder Brother Substance use disorder Maternal Grandmother History of breast cancer, Onset Age: 80 Father Hyperlipemia Hypertension Mother Parkinson disease Social History Housing: House Alcohol intake: current Alcohol intake frequency: a few times a week Alcohol type: wine Patient Tobacco Use Status: Never used Tobacco e-Cigarette/Vaping Use: Never Used service: No Current occupational status: employed Cognitive needs: No Hearing needs: No Vision needs: Yes Questionnaire Thrive Questionnaire Date Thrive assessed: 10/07/22 LYNDSEY-7 AMB Questionnaire LYNDSEY-7 Date LYNDSEY - 7 assessed: 10/07/22 Source: Developed by Drs. Wolf Pickering, Annie Singh, Leonid Fleming and colleagues, with an educational markie from [employer]. Review of Systems Const All systems reviewed & are unremarkable except as noted in HPI and below ENT Denies dizziness Card Denies chest pain, Denies rapid heart rate, Denies lightheadedness and Denies palpitations Resp Reports no additional complaints GI Denies melena and Denies hematochezia Reports no additional complaints Musc Reports no additional complaints Neuro Denies dizziness Endo Denies palpitations Physical exam (Primary Care) Vital Signs: Last Vital Signs Pulse 78 12/23/22 10:11 BP 136/80 12/23/22 10:11 Pulse Ox 98 12/23/22 10:11 Oxygen Delivery Method Room Air 12/23/22 10:11 BMI result Body Mass Index 31.1 Tobacco/Smoking Status: Tobacco use Status Tobacco use date assessed 11/16/23 11/16/23 10:17 Patient Tobacco Use Status Never used Tobacco 12/23/22 10:17 e-Cigarette/Vaping Use Never Used 12/23/22 10:17 Thrive Assessment: Date of Thrive Assessment Date Thrive assessed 10/07/22 12/23/22 10:17 Const Other: Alert oriented x3, no acute distress noted ambulatory normal gait, obese Orientation/consciousness: patient oriented x3 HENMT Mouth: Normal oral and palatal mucosa present and moist mucous membranes Neck Other: Supple, no lymphadenopathy, nonpalpable thyroid Resp Auscultation: clear to auscultation bilaterally Cardio Other: S1-S2 present regular rate and rhythm no murmurs GI Other: Normal bowel sounds, soft, nontender, no mass palpated General: Yes no CVA tenderness and Yes deferred Back/Spine/Pelvis Back: no CVA tenderness and No back tenderness Neuro General: patient oriented x3, gait normal, tone normal, moves all extremities, Normal light touch and pain sensation, no focal motor deficits and CN's II-XI intact bilaterally Results Reviewed Results Reviewed: SPEC : [id number] SUSHMA: 12/21/22 STATUS: COMP REQ : [id number] RECD: 12/21/[address]: Santos Akers COMP: 12/21/22 ENTERED: 12/21/[address]: Isamar Anthony MD ORDERED: CMP, Audrey, Lip Test Result Flag Reference Sodium 142 135-145 mmol/L Potassium 4.7 3.3-5.1 mmol/L CL 110 H 96-108 mmol/L CO2 23 22-29 mmol/L Gap 14 12-20 BUN 12 9-16 mg/dL Creat 1.12 0.5-1.4 mg/dL EGFR 50 NOTE: For -Citizen Of [place] individuals, multiply the result by 1.210. Chronic Kidney Disease: Estimated GFR < 60 mL/min/1.73m2 Severe Kidney Disease: Estimated GFR < 15 mL/min/1.73m2 Glucose, Random 93 60-115 mg/dL CA 10.0 8.4-10.2 mg/dL Total Bili 0.4 0.0-1.0 mg/dL AST (GOT) 106 H 5-31 U/L ALT (GPT) 142 H 0-31 U/L Protein, Total 7.7 6.5-8.0 g/dL Alb 4.4 3.5-5.0 g/dL Alk Phos 50 39-117 U/L Audrey 45 28-100 U/L Lipase 38 8-78 U/L RUN: 03/30/23 0203 PAGE 1 [facility] [address] [place] [id number] Salvager Helper: Roque Castaneda M.D. Specimen Inquiry Name: Ilda Nelson Age/Sex: 57/F : 1965 Unit#: [id number] Attend Dr: Santos Akers Re12/21/22 Status: DEP [facility] Disch: SPEC : [id number] SUSHMA: 12/21/22 STATUS: COMP REQ : [id number] RECD: 12/21/[address]: Santos Akers COMP: 12/21/22 ENTERED: 12/21/[address]: Isamar Anthony MD ORDERED: CBC Auto Diff Test Result Flag Reference WBC 6.6 4.8-10.8 X10*3/uL RBC 4.61 4.20-5.50 X10*6/uL HGB 14.9 12.0-16.0 g/dl HCT 43.1 37.0-47.0 % MCV 93.5 80.0-98.0 fL MCH 32.3 27.0-33.0 pg MCHC 34.6 31.0-35.0 g/dl RDW 12.1 11.0-16.0 % PLT 221 # 160-400 X10*3/uL Assessment and Plan Assessment & Plan (1) Hx of diverticulitis of colon: Code(s): Z87.19 - Personal history of other diseases of the digestive system Plan: Patient's symptoms have resolved with ciprofloxacin . Advised to advised it is her diet slowly as tolerated, afterwards advised to drink plenty of fluids, and added dietary fiber to regular intake Coding Level of Care Code Est Pt Level 3 (73728) Diagnoses Hx of diverticulitis of colon Z87.19
== END 2022-12-23 15:09 | disposition home or self-care (01) ==
PROVIDERS: PCP Internal Medicine; Visit Provider Internal Medicine
DX: Z87.19 Personal history of other diseases of the digestive system (principal)
CPT/HCPCS: 99213

== ENCOUNTER 2023-01-12 09:14 | Outpatient (AMB) | payer OTHER, SELFPAY ==
--- NOTE | 2023-01-12 09:16 | A.OFFVIS_ITS ---
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 Present ([place]) Allergies ampicillin [AMPICILLIN] Allergy (Unknown, Verified 01/12/23 09:17) HIVES, rash on mouth penicillin V Allergy (Unknown, Verified 01/12/23 09:17) rash on mouth Penicillins [PENICILLINS] Allergy (Unknown, Verified 01/12/23 09:17) HIVES Sulfa (Sulfonamide Antibiotics) [SULFA (SULFONAMIDE ANTIBIOTICS)] Allergy (Unknown, Verified 01/12/23 09:17) ALTERED WBC, blood cells level abnormal rosuvastatin Adverse Reaction (Unknown, Verified 01/12/23 09:17) myalgia, ^ cpk Ampicillin Allergy (Unknown, Uncoded 12/23/22 10:52) Hives Sulfa Drugs Allergy (Unknown, Uncoded 12/23/22 10:52) white blood cell reaction Post menopausal: Yes HPI HPI Comments History of Present Illness Details She is a 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 She is doing well with no concerns. Attempting to eat a healthy diet with calcium and vitamin D and stays active with exercise. Currently not sexually active. Denies any vaginal dryness externally uses a moisturizer to the area locally p.r.n.. Last pap smear; 2021. Last mammogram; 2022. Colonoscopy is UTD. History of diverticulitis. Denies any family history of ovarian or colon cancer. [facility] Medical History Elevated liver transaminase level Hx of diverticulitis of colon Tinea corporis Osteopenia Subcutaneous nodule of right thumb Cervical cancer screening HTN (hypertension) Impaired fasting glucose Dyslipidemia No known health problems Surgical History Hx of dilation and curettage Family History Brother Substance use disorder Brother Substance use disorder Brother Substance use disorder Maternal Grandmother History of breast cancer, Onset Age: 80 Father Hyperlipemia Hypertension Mother Parkinson disease Social History Housing: House Alcohol intake: current Alcohol intake frequency: a few times a week Alcohol type: wine Patient Tobacco Use Status: Never used Tobacco e-Cigarette/Vaping Use: Never Used service: No Current occupational status: employed Cognitive needs: No Hearing needs: No Vision needs: Yes Female Reproductive History Menstrual Menopause type: natural Total pregnancies: 0 Date of last pap smear: 10/21/21 (neg pap and hpv) History of abnormal pap smear: Yes (abn pap around age 29) Date of Mammogram: 10/26/22 (Birad 2) Review of Systems Const All systems reviewed & are unremarkable except as noted in HPI and below Reports as per HPI Eyes Reports no additional complaints ENT Reports no additional complaints Card Reports no additional complaints Resp Reports no additional complaints GI Reports as per HPI and Reports no additional complaints Reports as per HPI Musc Reports no additional complaints Skin/Breast Reports as per HPI Neuro Reports no additional complaints Psych Reports no additional complaints Endo Reports no additional complaints [place]/Lymph Reports no additional complaints Aller/Immun Reports no additional complaints Physical Exam Const General: cooperative, healthy appearing, no acute distress, well developed and alert Orientation/consciousness: patient oriented x3 HEENT Head: Yes normal to inspection Eyes General: appearance normal, both eyes and all related structures Neck Neck: Yes normal visual inspection Thyroid: Thyroid normal Chest Chest palpation & inspection: normal inspection of the chest and other (no puckering, dimpling, peau de orange, retraction, discharge, masses) Breast/axilla inspection: normal inspection of the breasts Breast/axilla palpation: normal palpation of the breasts Resp Effort & Inspection: normal respiratory effort GI Inspection: Yes normal to inspection Palpation (GI): Soft to palpation Rectal Exam - Female: deferred Other: Utilize the smallest pencil size speculum. General: Yes bladder normal to palpation External Female Exam: normal external appearance and normal appearance of the urethra Speculum Exam - Vagina: normal appearance of the vagina, normal palpation, normal vaginal discharge and vagina atrophic (Very narrow inlet and hymenal tissue) Speculum Exam - Cervix: normal appearance of the cervix and normal palpation Bimanual exam- vagina & uterus: normal bimanual exam, normal palpation, uterine size normal, bladder normal to palpation, normal palpation and non-tender Bimanual Exam- Adnexa, other: no masses Skin General skin exam: no rashes or lesions noted Rashes: no rashes Neuro General: patient oriented x3 Cognition (Neuro): normal cognition Extrem General: Yes normal to inspection Psych Attitude: cooperative Thought process: Normal thought process present Assessment & Plan Assessment & Plan (1) Encounter for well woman exam with routine gynecological exam: Code(s): Z01.419 - Encounter for gynecological examination (general) (routine) without abnormal findings (2) Left breast lump: Code(s): N63.20 - Unspecified lump in the left breast, unspecified quadrant Qualifiers: Breast mass location: unspecified quadrant Plan Discussed: Current recommendations for pap smears per ASCCP guidelines. Breast awareness, periodic self breast exams and yearly mammogram. Maintain a healthy lifestyle, well balanced diet including Calcium 1,200 mg and Vitamin D 600 IU daily, and routine exercise. Contact the office with any postmenopausal bleeding. Plan ultrasound of left breast, diagnostic mammogram, follow-up pending test results. All of her questions and concerns were addressed to the best of my ability. RTO in 1 year for annual petrophysical engineer exam. Orders: Orders MM tomosynthesis diagnostic BI Today N63.20 - Unspecified lump in the left breast, unspecified quadrant, Z12.31 - Encounter for screening mammogram for malignant neoplasm of breast US breast LT complete Today N63.20 - Unspecified lump in the left breast, unspecified quadrant Coding Level of Care Code Est Pt Prev Care 40-64y(32403) Diagnoses Encounter for well woman exam with routine gynecological exam Z01.419 Left breast lump N63.20 Breast mass location: unspecified quadrant
[2023-01-12 09:18] VITALS: BP 122/86; BMI 30.9
== END 2023-01-12 09:59 | disposition home or self-care (01) ==
PROVIDERS: PCP Internal Medicine; Visit Provider Advanced Practice Midwife
DX: Z01.419 Encounter for gynecological examination (general) (routine) without abnormal findings (principal); N63.20 Unspecified lump in the left breast, unspecified quadrant
CPT/HCPCS: 99396

== ENCOUNTER → 2023-01-12 09:14 | Outpatient (BNVA) | payer OTHER, SELFPAY | PROVIDERS: PCP Internal Medicine; Visit Provider Advanced Practice Midwife ==

== ENCOUNTER 2023-01-13 08:43 | Outpatient (REF) | payer OTHER, SELFPAY ==
--- NOTE | ~2023-01-13 | US_ITS ---
EXAMINATION: MM DIAGNOSTIC DIGITAL BREAST TOMOSYNTHESIS, LEFT US BREAST LIMITED, LEFT MAMMOGRAPHY: CLINICAL INFORMATION: Palpable lump in the upper inner quadrant of the left breast. COMPARISON: Mammography: This study is compared with prior mammograms dating back to 2019. TECHNIQUE: Digital breast tomosynthesis is performed in both the craniocaudal and mediolateral oblique views along with computer-aided detection (CAD). Synthesized 2D images are generated from the tomosynthesis. Additional mammographic imaging including spot compression of the upper inner quadrant of the left breast in the CC and MLO projections, a full left lateral view and left spot compression in the lateral projection. Rolled cc views were also obtained. FINDINGS: There are scattered areas of fibroglandular density (ACR BI-RADS breast composition Category b). There are no mammographic signs of malignancy in the left breast. There are no imaging correlates with the area of palpable concern. ULTRASOUND: CLINICAL INFORMATION: Palpable lump in the upper inner quadrant of the left breast. TECHNIQUE: Targeted sonographic evaluation was performed using a high frequency linear transducer. Selected archived documentation. FINDINGS: LEFT BREAST: The superior half of the left breast was imaged with ultrasound. There are no focal findings in the area imaged. There is no abnormality of the echotexture of the breast. US/US breast LT limited mamm only IMPRESSION: No mammographic signs of malignancy in the left breast. No sonographic abnormalities in the superior half of the left breast. No mammographic or sonographic correlates with the area of palpable concern in the upper inner quadrant. Clinical follow-up is advised. The next bilateral, routine, annual screening mammogram is due in October 2023. OVERALL ASSESSMENT: Mammography: BI-RADS 1 - Negative Ultrasound: BI-RADS 1 - Negative RECOMMENDATION: 1 year F/U This 1 year follow-up recommendation refers to the imaging follow-up. Clinical follow-up is advised for the palpable area of concern. Results were discussed with the patient at time of visit. This patient's information was entered into a reminder system with a target due date for their next mammogram.
== END 2023-01-13 08:44 | disposition home or self-care (01) ==
LOC: HO.MAMMO 08:43
PROVIDERS: PCP Internal Medicine; Visit Provider Advanced Practice Midwife
DX: N63.25 Unspecified lump in the left breast, overlapping quadrants (principal)
CPT/HCPCS: 76642; 77061; 77065

== ENCOUNTER → 2023-01-13 09:00 | Outpatient (BNV) | payer OTHER, SELFPAY | PROVIDERS: PCP Internal Medicine; Visit Provider Radiology Diagnostic Radiology | DX: N63.22 Unspecified lump in the left breast, upper inner quadrant (principal) | CPT/HCPCS: 76642; 77061; 77065 ==

== ENCOUNTER 2023-03-31 14:09 | Outpatient (AMB) | payer OTHER, SELFPAY ==
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
[2023-03-31 14:14] VITALS: BP 120/84; BMI 30.9
== END 2023-03-31 14:56 | disposition home or self-care (01) ==
LOC: HO.HWS 14:10
PROVIDERS: PCP Internal Medicine; Visit Provider Advanced Practice Midwife
DX: N64.4 Mastodynia (principal); Z71.2 Person consulting for explanation of examination or test findings
CPT/HCPCS: 99213

== ENCOUNTER → 2023-03-31 14:09 | Outpatient (BNVA) | payer OTHER, SELFPAY | PROVIDERS: PCP Internal Medicine; Visit Provider Advanced Practice Midwife ==

== ENCOUNTER 2023-10-20 08:13 | Outpatient (AMB) | payer OTHER, SELFPAY ==
[2023-10-20 08:14] VITALS: BP 132/78; PULSE 88; O2SAT 98; BMI 30.2
--- NOTE | 2023-10-20 08:14 | MHC.PC.OV ---
Vital Signs 10/20/23 08:14 Height 5 ft 7 in Weight 193 lb BMI 30.2 BP 132/78 Blood Pressure Location Rt brachial Position Sitting Pulse 88 Pulse Source Pulse Oximeter Pulse Oximetry (%) 98 Oxygen Delivery Method Room Air Intake Visit Reasons: Annual /PE Intake Note: Pt is here today for her PE: Last mammogram 01/13/23, papsmear 10/22/21, colonoscopy 03/20/18 Allergies ampicillin [AMPICILLIN] Allergy (Unknown, Verified 10/20/23 08:24) HIVES, rash on mouth penicillin V Allergy (Unknown, Verified 10/20/23 08:24) rash on mouth Penicillins [PENICILLINS] Allergy (Unknown, Verified 10/20/23 08:24) HIVES Sulfa (Sulfonamide Antibiotics) [SULFA (SULFONAMIDE ANTIBIOTICS)] Allergy (Unknown, Verified 10/20/23 08:24) ALTERED WBC, blood cells level abnormal rosuvastatin Adverse Reaction (Unknown, Verified 10/20/23 08:24) myalgia, ^ cpk Ampicillin Allergy (Unknown, Uncoded 10/20/23 08:24) Hives Sulfa Drugs Allergy (Unknown, Uncoded 10/20/23 08:24) white blood cell reaction Medication List - Last Reconciled 10/20/23 by Isamar Anthony MD calcium carb-D3-mag [id number] [phone] wc-huau-us-mg 1 tab PO DAILY cholecalciferol (vitamin D3) 25 mcg PO DAILY lactobacillus combination no.4 (Probiotic) 3,000 mmu cells PO DAILY lisinopril 5 mg PO DAILY multivitamin 1 tab PO DAILY vitamin B complex (B Complex-Vitamin B12 tablet) 1 tab PO DAILY Tobacco use date assessed: 10/20/23 Dental Screening Dental Screen Date: 10/20/23 Did you have a dental visit in the last 12 months?: Yes Did you have a dental problem in the last 6 months where you did not have access to dental care?: No Was dental information given to patient?: Patient has dentist HPI Annual /PE HPI Details 58 year oldLady here today for her physical exam. She has hypertension currently stable controlled on lisinopril 5 mg taken once a day ; has hyperlipidemia currently being controlled through diet. She is up-to-date with her cervical cancer screening, followed at [facility] last Pap done in 2019 with last Pap smear done in 2021 showing benign findings., with last Pap smear done 2021 with benign findings. Up-to-date with her screening mammogram, has another appointment already scheduled for later this month.. She had a bone density scan done in 2021 which showed normal bone density . She was noted to have elevated liver enzymes on last visit in December of 2022, with CT scan of abdomen pelvis showed unremarkable findings and ultrasound of abdomen showing only presence of hepatic steatosis with no biliary dilatation or gallstones seen.. She is up-to-date with her screening colonoscopy done [address] Chen which showed no polyps, mild diverticulosis in left colon, and small internal hemorrhoids. Due for a repeat colonoscopy in 2028. Developed sores on her tongue and whitish plaques on inner cheeks, and had a biopsy done by the [facility] 08/27/2023 which showed presence of lichen planus. This was treated with steroid with resolution. She did have positive KRISTOPHER on labs done last year [facility] Medical History (Updated 10/23/23 @ 16:56 by Isamar Anthony MD) Family history of coronary artery disease Positive KRISTOPHER (antinuclear antibody) History of lichen planus Elevated liver transaminase level Hx of diverticulitis of colon Tinea corporis Subcutaneous nodule of right thumb Cervical cancer screening HTN (hypertension) Impaired fasting glucose Dyslipidemia No known health problems Surgical History Hx of dilation and curettage Family History (Updated 10/20/23 @ 08:47 by Isamar Anthony MD) Brother Prostate CA Brother Substance use disorder Brother Substance use disorder Maternal Grandmother History of breast cancer, Onset Age: 80 Father Hyperlipemia Hypertension Hx of myocardial infarction Mother Parkinson disease Sister Renal cancer Social History Housing: House Alcohol intake: current Alcohol intake frequency: a few times a week Alcohol type: wine Patient Tobacco Use Status: Never used Tobacco e-Cigarette/Vaping Use: Never Used service: No Current occupational status: employed Cognitive needs: No Hearing needs: No Vision needs: Yes Questionnaire PHQ-9 Over the last 2 weeks, how often have you been bothered by any of the following problems? 1. Little interest or pleasure in doing things: not at all 2. Feeling down, depressed, or hopeless: not at all 3. Trouble falling or staying asleep, or sleeping too much: several days 4. Feeling tired or having little energy: several days 5. Poor appetite or overeating: not at all 6. Feeling bad about yourself - or that you are a failure or have let yourself or your family down: not at all 7. Trouble concentrating on things, such as reading the newspaper or watching television: not at all 8. Moving or speaking so slowly that other people could have noticed. Or the opposite - being so fidgety or restless that you have been moving around a lot more than usual: not at all 9. Thoughts that you would be better off or of hurting yourself in some way: not at all Total score: 2 Depression Screening Interpretation: Negative Depression Screening Done: Yes 78485 - PHQ-9 Billing: Yes Source: Developed by Drs. Wolf Pickering, Annie Singh, Leonid Fleming and colleagues, with an educational markie from [employer]. Thrive Questionnaire Date Thrive assessed: 10/20/23 I am a: Patient What is your living situation today?: I have a steady place to live Within the past 12 months, did the food you bought not last and you didn't have the money to get more?: Never true Within the past 12 months, did you worry whether your food would run out before you got money to buy more?: Never true Do you have trouble paying for medicines?: No Do you have trouble getting transportation to medical appointments?: No Do you have trouble paying your heating and electricity bill?: No Do you have trouble taking care of your child, family member or friend?: No Do you have trouble with day-to-day activities such as bathing, preparing meals, shopping, managing finances, etc.?: No Are you currently unemployed and looking for a job?: No Are you interested in more education?: No Currently or been in a relationship where the following occur: No concerns reported THRIVE Score: 0 AUDIT C Alcohol Use Questionnaire (AUDIT-C) 1. How often do you have a drink containing alcohol?: Monthly or less 2. How many drinks containing alcohol do you have on a typical day when you are drinking?: 1 or 2 3. How often do you have six or more drinks on one occasion?: Never Total Score: 1 LYNDSEY-7 AMB Questionnaire LYNDSEY-7 Date LYNDSEY - 7 assessed: 10/20/23 Feeling nervous, anxious, or on edge: 1 = Several days Not being able to stop or control worryin = Several days Worrying too much about different things: 3 = Nearly every day Trouble relaxin = Several days Being so restless that it is hard to sit still: 0 = Not at all Becoming easily annoyed or irritable: 0 = Not at all Feeling afraid as if something awful might happen: 1 = Several days Total LYNDSEY-7 score (0-4 normal; 5-9 mild; 10-14 moderate; 15-21 severe): 7 Source: Developed by Drs. Wolf Pickering, Annie Singh, Leonid Fleming and colleagues, with an educational markie from [employer]. LYNDSEY-7 Assessment Billing LYNDSEY-7 Assessment Tool: LYNDSEY-7 Assessment 60094 Review of Systems Const All systems reviewed & are unremarkable except as noted in HPI and below Eyes Details: sees eye dr in [place] ENT Denies dizziness Card Denies chest pain, Denies rapid heart rate, Denies lightheadedness and Denies palpitations Resp Reports no additional complaints GI Denies melena and Denies hematochezia Reports no additional complaints Musc Reports no additional complaints Skin/Breast Reports as per HPI Neuro Denies dizziness Psych Reports no additional complaints Endo Denies palpitations [place]/Lymph Reports no additional complaints Aller/Immun Reports no additional complaints Physical exam (Primary Care) Vital Signs: Last Vital Signs Pulse 88 10/20/23 08:14 BP 132/78 10/20/23 08:14 Pulse Ox 98 10/20/23 08:14 Oxygen Delivery Method Room Air 10/20/23 08:14 BMI result Body Mass Index 30.2 Tobacco/Smoking Status: Tobacco use Status Tobacco use date assessed 10/20/23 10/20/23 08:20 Patient Tobacco Use Status Never used Tobacco 10/20/23 08:18 e-Cigarette/Vaping Use Never Used 10/20/23 08:18 PHQ-9: PHQ-9 Score PHQ-9: Total score 2 10/20/23 08:47 Depression Screening Interpretation: Negative Thrive Assessment: Date of Thrive Assessment Date Thrive assessed 10/20/23 10/20/23 08:20 Currently or been in a relationship where the following occur: No concerns reported Advance Care Planning discussion: Completed/Scanned Date of discussion: 10/20/23 Who was present: Patient Forms completed: Health Care Proxy Time spent: 16-45 minutes Actual minutes spent: 16 Const Other: Alert oriented x3, no acute distress noted ambulatory normal gait, obese Orientation/consciousness: patient oriented x3 HENMT Mouth: Normal oral and palatal mucosa present and moist mucous membranes Neck Other: Supple, no lymphadenopathy, nonpalpable thyroid Chest Breast/axilla palpation: normal palpation of the breasts Resp Auscultation: clear to auscultation bilaterally Cardio Other: S1-S2 present regular rate and rhythm no murmurs GI Other: Normal bowel sounds, soft, nontender, no mass palpated General: Yes no CVA tenderness and Yes deferred Back/Spine/Pelvis Back: no CVA tenderness and No back tenderness Skin General skin exam: no rashes or lesions noted Neuro General: patient oriented x3, gait normal, tone normal, moves all extremities, Normal light touch and pain sensation, no focal motor deficits and CN's II-XI intact bilaterally Extrem General: Yes normal to inspection, Yes full ROM, Yes no joint enlargement, Yes no pedal edema and Yes normal gait Psych Appearance: grossly normal and well kempt Mental Status: mental status grossly normal Speech and movement: Normal speech and movement present Affect: normal affect Attitude: cooperative Thought process: Normal thought process present Thought content: Normal thought content present Results Reviewed Results Reviewed: Assessment and Plan Assessment & Plan (1) Annual visit for general adult medical examination with abnormal findings: Code(s): Z00.01 - Encounter for general adult medical examination with abnormal findings Plan: Will check appropriate labs. Recommended dental visit every 6 months and regular eye exams, at least every 2 years. Take adequate calcium in diet and vitamin-D 3 at 2000 IU per cap once a day, in addition to weight-bearing exercises to help maintain good muscle tone and weight control. Instructed to do self-breast exam, and continue to get yearly mammogram, she sees [facility] for her routine Pap and pelvic exam.. Up-to-date with her screening colonoscopy. Reminded to get vaccinated for her yearly flu vaccine get COVID booster, up-to-date with Tdap, recommended to get shingles vaccination will check fasting lipid (2) HTN (hypertension): Code(s): I10 - Essential (primary) hypertension Qualifiers: Hypertension type: primary hypertension Qualified Code(s): I10 - Essential (primary) hypertension Plan: Blood pressure at goal of less than 130/80. Continue with lisinopril 5 mg daily. Reinforced importance of following a low sodium diet, getting regular exercise, and lowering stress levels. (3) Impaired fasting glucose: Code(s): R73.01 - Impaired fasting glucose Plan: Your previous fasting blood sugars were elevated above 100 mg/dL. Impaired glucose metabolism increases the risk for developing diabetes mellitus type 2, as well as heart attack and stroke later on. Lifestyle changes that promotes weight loss, healthy eating habits, and regular exercise are important, and can prevent the progression to diabetes (4) Dyslipidemia: Code(s): E78.5 - Hyperlipidemia, unspecified Plan: Fasting lipid panel ordered. Reinforced adherence to low-cholesterol diet and regular exercise, at least 30 minutes 3 to 4 times a week. Advised patient to make healthy food choices, eat more fruits, vegetables, whole grains, wild caught fish and low-fat dairy. Limit amount of meat and fried or fatty food products, as well as processed foods and fast foods. (5) Elevated liver transaminase level: Code(s): R74.01 - Elevation of levels of liver transaminase levels Plan: Comprehensive metabolic panel, fasting lipid panel TSH and free T4 ordered (6) Family history of coronary artery disease: Code(s): Z82.49 - Family history of ischemic heart disease and other diseases of the circulatory system Plan: Check fasting lipid panel, cardiology consult ordered (7) Positive KRISTOPHER (antinuclear antibody): Code(s): R76.8 - Other specified abnormal immunological findings in serum Plan: Repeat KRISTOPHER check Orders: Orders Vitamin B12 and Folate 10/20/23 E78.5 - Hyperlipidemia, unspecified, I10 - Essential (primary) hypertension, R73.01 - Impaired fasting glucose, R74.01 - Elevation of levels of liver transaminase levels KRISTOPHER Reflex Titer and Pattern 10/20/23 R76.8 - Other specified abnormal immunological findings in serum, Z87.2 - Personal history of diseases of the skin and subcutaneous tissue TSH reflex Free T4 09/12/24 R76.8 - Other specified abnormal immunological findings in serum, Z87.2 - Personal history of diseases of the skin and subcutaneous tissue Hemoglobin A1c 10/20/23 E78.5 - Hyperlipidemia, unspecified, I10 - Essential (primary) hypertension, R73.01 - Impaired fasting glucose, R74.01 - Elevation of levels of liver transaminase levels Comprehensive [place]. Panel Fast 10/20/23 E78.5 - Hyperlipidemia, unspecified, I10 - Essential (primary) hypertension, R73.01 - Impaired fasting glucose, R74.01 - Elevation of levels of liver transaminase levels Lipid Panel 10/20/23 E78.5 - Hyperlipidemia, unspecified, I10 - Essential (primary) hypertension, R73.01 - Impaired fasting glucose, R74.01 - Elevation of levels of liver transaminase levels Vitamin D 25-OH Total 10/20/23 E78.5 - Hyperlipidemia, unspecified, I10 - Essential (primary) hypertension, R73.01 - Impaired fasting glucose, R74.01 - Elevation of levels of liver transaminase levels Erythrocyte Sedimentation Rate 10/20/23 R76.8 - Other specified abnormal immunological findings in serum, Z87.2 - Personal history of diseases of the skin and subcutaneous tissue Referrals Cardiology Referral E78.5 - Hyperlipidemia, unspecified, I10 - Essential (primary) hypertension, Z82.49 - Family history of ischemic heart disease and other diseases of the circulatory system Coding Level of Care Code Est Pt Prev Care 40-64y(11477) Diagnoses Annual visit for general adult medical examination with abnormal findings Z00.01 Primary hypertension I10 Hypertension type: primary hypertension Impaired fasting glucose R73.01 Dyslipidemia E78.5 Elevated liver transaminase level R74.01 Family history of coronary artery disease Z82.49 Positive KRISTOPHER (antinuclear antibody) R76.8 Additional Codes LYNDSEY-7 Assessment Billing - LYNDSEY-7 Assessment Tool: LYNDSEY-7 Assessment 79393 ([id number]) Vital Signs *Quality* - Advance Care Planning discussion: Completed/Scanned ([id number]) Vital Signs *Quality* - Time spent: 16-45 minutes ([id number])
== END 2023-10-20 09:11 | disposition home or self-care (01) ==
PROVIDERS: PCP Internal Medicine; Visit Provider Internal Medicine
DX: Z00.00 Encounter for general adult medical examination without abnormal findings (principal); I10 Essential (primary) hypertension; R73.01 Impaired fasting glucose; E78.5 Hyperlipidemia, unspecified; R74.01 Elevation of levels of liver transaminase levels; Z82.49 Family history of ischemic heart disease and other diseases of the circulatory system; R76.8 Other specified abnormal immunological findings in serum
CPT/HCPCS: 1123F; 99396; 99497

== ENCOUNTER 2023-10-20 09:22 | Outpatient (REF) | payer OTHER, SELFPAY ==
[2023-10-20 13:45] LABS: Estimated Average Glucose 126 mg/dL; Hemoglobin A1C 151.6281 umol/L
[2023-10-20 14:09] LABS: Alanine Aminotransferase 47 U/L (0-31); Albumin Level 4.6 g/dL (3.5-5.0); Alkaline Phosphatase 50 U/L (39-117); Anion Gap 14 (12-20); Aspartate Amino Transferase 27 U/L (5-31); Bilirubin Total 1.1 mg/dL (0.0-1.0); Blood Urea Nitrogen 13 mg/dL (9-16); Calcium 10.2 mg/dL (8.4-10.2); Carbon Dioxide 26 mmol/L (22-29); Chloride 106 mmol/L (96-108); Cholesterol 270 mg/dL (<200); Estimated Glomerular Filt Rate 54; Glucose Fasting 121 mg/dL (60-99); HDL Cholesterol 57 mg/dL (>40); LDL Cholesterol Calculated 184 mg/dL (<100); Potassium 4.4 mmol/L (3.3-5.1); Sodium 142 mmol/L (135-145); TSH reflex Free T4 1.81 uIU/mL (0.32-4.0); Total Protein 7.8 g/dL (6.5-8.0); Triglycerides 149 mg/dL (<150); Vitamin D 25-OH Total 84.3 ng/mL (>30)
[2023-10-20 14:13] LABS: Folate 14.5 ng/mL (> or = 4.0); Vitamin B12 663 pg/mL (200-900)
[2023-10-20 14:38] LABS: Erythrocyte Sedimentation Rate 13 MM/HR (0-20)
[2023-10-24 15:33] LABS: Anti Nuclear Antibody Screen POSITIVE (NEGATIVE)
== END 2023-10-20 09:23 | disposition home or self-care (01) ==
LOC: HO.HMGCLDS 09:22
PROVIDERS: PCP Internal Medicine; Visit Provider Internal Medicine
DX: R76.8 Other specified abnormal immunological findings in serum (principal); R74.01 Elevation of levels of liver transaminase levels; I10 Essential (primary) hypertension; R73.01 Impaired fasting glucose; E78.5 Hyperlipidemia, unspecified; Z87.2 Personal history of diseases of the skin and subcutaneous tissue
CPT/HCPCS: 36415; 80053; 80061; 82306; 82607; 82746; 83036; 84443; 85652; 86038; 86039

== ENCOUNTER 2023-11-08 09:30 | Outpatient (AMB) | payer OTHER, SELFPAY ==
[2023-11-08 09:32] VITALS: BP 126/90; PULSE 86; BMI 30.7
--- NOTE | 2023-11-08 09:32 | A.OFFVIS_ITS ---
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 Accompanied by: Self / Same As Patient Allergies ampicillin [AMPICILLIN] Allergy (Unknown, Verified 10/20/23 08:24) HIVES, rash on mouth penicillin V Allergy (Unknown, Verified 10/20/23 08:24) rash on mouth Penicillins [PENICILLINS] Allergy (Unknown, Verified 10/20/23 08:24) HIVES Sulfa (Sulfonamide Antibiotics) [SULFA (SULFONAMIDE ANTIBIOTICS)] Allergy (Unknown, Verified 10/20/23 08:24) ALTERED WBC, blood cells level abnormal rosuvastatin Adverse Reaction (Unknown, Verified 10/20/23 08:24) myalgia, ^ cpk Ampicillin Allergy (Unknown, Uncoded 10/20/23 08:24) Hives Sulfa Drugs Allergy (Unknown, Uncoded 10/20/23 08:24) white blood cell reaction Medication List - Last Reconciled 11/08/23 by Forest Rios MD atorvastatin 10 mg PO BEDTIME calcium carb-D3-mag [id number] [phone] jc-dtfs-xg-mg 1 tab PO DAILY cholecalciferol (vitamin D3) 25 mcg PO DAILY lactobacillus combination no.4 (Probiotic) 3,000 mmu cells PO DAILY lisinopril 5 mg PO DAILY multivitamin 1 tab PO DAILY vitamin B complex (B Complex-Vitamin B12 tablet) 1 tab PO DAILY HPI Comments Details: Ilda is here for consultation do strong family history of cardiac issues. There is a family history of coronary disease/myocardial infarction father as well as grandfather. Patient herself does not have any known cardiac issues. She states there is lot of stress overall. Blood pressure is on the higher side and she is on lisinopril. She also has a history of high lipids. On statins. She gets some sharp chest pains off and on but nothing clearly exertional. [facility] Medical History (Updated 10/23/23 @ 16:56 by Isamar Anthony MD) Family history of coronary artery disease Positive KRISTOPHER (antinuclear antibody) History of lichen planus Elevated liver transaminase level Hx of diverticulitis of colon Tinea corporis Subcutaneous nodule of right thumb Cervical cancer screening HTN (hypertension) Impaired fasting glucose Dyslipidemia No known health problems Surgical History Hx of dilation and curettage Family History Brother Prostate CA Brother Substance use disorder Brother Substance use disorder Maternal Grandmother History of breast cancer, Onset Age: 80 Father Hyperlipemia Hypertension Hx of myocardial infarction Mother Parkinson disease Sister Renal cancer Social History Housing: House Alcohol intake: current Alcohol intake frequency: a few times a week Alcohol type: wine Patient Tobacco Use Status: Never used Tobacco e-Cigarette/Vaping Use: Never Used service: No Current occupational status: employed Cognitive needs: No Hearing needs: No Vision needs: Yes Review of Systems Const Denies chills, Denies daytime sleepiness, Denies fatigue, Denies fever(s), Denies poor appetite, Denies snoring, Denies stops breathing during sleep, Denies weakness, Denies weight gain and Denies weight loss Eyes Denies loss of vision ENT Denies dizziness and Denies hearing loss Card Denies chest pain, Denies irregular heart rhythm, Denies claudication, Denies leg edema, Denies lightheadedness, Denies palpitations, Denies dyspnea on exertion and Denies orthopnea Resp Denies cough, Denies excessive phlegm production, Denies dyspnea on exertion, Denies snoring and Denies wheezing GI Denies abdominal pain, Denies hematochezia, Denies change in bowel habits, Denies nausea and Denies vomiting Denies urinary frequency and Denies dysuria Musc Denies arthralgias, Denies muscle weakness, Denies numbness and Denies other Skin/Breast Denies nail changes and Denies rash Neuro Denies Abnormal speech present, Denies dizziness, Denies loss of vision, Denies memory loss, Denies numbness and Denies weakness Psych Denies depression and Denies memory loss Endo Denies fatigue and Denies palpitations [place]/Lymph Denies easy bruising Aller/Immun Denies wheezing Physical Exam Vital Signs: Last Vital Signs Pulse 86 11/08/23 09:32 BP 126/90 H 11/08/23 09:32 BMI result Body Mass Index 30.7 Const General: comfortable and no acute distress Orientation/consciousness: patient oriented x3 HEENT Other: Unremarkable Head: Yes normal to inspection Neck Neck: Yes normal visual inspection Chest Chest palpation & inspection: normal inspection of the chest Resp Auscultation: clear to auscultation bilaterally Cardio Palpation: normal PMI Heart sounds: S1 normal heart sound present, S2 normal heart sound present, no gallops, no murmurs and no rubs GI Palpation (GI): Soft to palpation Back/Spine/Pelvis Other: unremarkable Skin General skin exam: no rashes or lesions noted Neuro General: patient oriented x3 Speech: No Abnormal speech present Extrem General: Yes normal to inspection Psych Mental Status: mental status grossly normal Office Procedures EKG Details: EKG with underlying sinus rhythm at 86/Min; no significant ST-T changes and otherwise unremarkable. [place]. [id number], Complete Assessment & Plan Assessment & Plan (1) Family history of coronary artery disease: Code(s): Z82.49 - Family history of ischemic heart disease and other diseases of the circulatory system Category: Medical (2) HTN (hypertension): Code(s): I10 - Essential (primary) hypertension Category: Medical Qualifiers: Hypertension type: primary hypertension Qualified Code(s): I10 - Essential (primary) hypertension (3) Dyslipidemia: Code(s): E78.5 - Hyperlipidemia, unspecified Category: Medical Plan Multiple cardiovascular risk factors including family history, hypertension, dyslipidemia, overweight. Atypical sounding chest pains. Obtain echocardiogram and coronary CTA. If not approved, can consider calcium scoring CT. Follow-up after the above. Orders: Orders CT Cardiac Coronary Angio Today I25.10 - Atherosclerotic heart disease of [place] coronary artery without angina pectoris CA echo transthoracic complete Today I10 - Essential (primary) hypertension Coding Level of Care Code New Pt Level 4 (35713) Diagnoses Family history of coronary artery disease Z82.49 Primary hypertension I10 Hypertension type: primary hypertension Dyslipidemia E78.5 CPT Codes EKG - CPT: 23705-[id number], Complete ([id number])
== END 2023-11-08 10:06 | disposition home or self-care (01) ==
PROVIDERS: PCP Internal Medicine; Visit Provider Internal Medicine
DX: Z82.49 Family history of ischemic heart disease and other diseases of the circulatory system (principal); I10 Essential (primary) hypertension; E78.5 Hyperlipidemia, unspecified
CPT/HCPCS: 93010; 99204

== ENCOUNTER → 2023-11-08 09:30 | Outpatient (BNVA) | payer OTHER, SELFPAY | PROVIDERS: PCP Internal Medicine; Visit Provider Internal Medicine | DX: I10 Essential (primary) hypertension (principal); E78.5 Hyperlipidemia, unspecified; Z82.49 Family history of ischemic heart disease and other diseases of the circulatory system | CPT/HCPCS: 93005 ==

== ENCOUNTER → 2023-12-16 13:04 | Outpatient (REF) | payer OTHER, SELFPAY ==
--- NOTE | 2023-12-16 13:07 | CA_ITS ---
Transthoracic Echocardiogram Patient (Last, First, Middle): Ilda Nelson M Gender: Female Date of : 1965 Age: 58 Procedure Date: 12/16/2023 Procedure Type: Transthoracic Echocardiogram Location: OP Height: 170. cm Weight: 87.09 kg BSA: 1.99 m2 Heart Rate: 78 bpm BP: 122 / 80 mmHg Fabric Cutter: JEFF Barrera MD: Forest Rios MD Computer Sciences Professor: Ernst Ann MD Symptoms: I10 - Essential (primary) hypertension Study Quality: Fair ECG Rhythm: Sinus Conclusions: - 1. Normal LV ejection fraction of 65-70% 2. Mildly dilated right ventricle with preserved contractility 3. Normal cardiac valvular Dopplers 4. Normal RV systolic pressure Findings Left Ventricle Normal left ventricular size, thickness, and systolic function. The visually estimated ejection fraction is between 65-70%. Spectral Doppler is indicative of a normal filling pattern. Right Ventricle Mildly increased right ventricular cavity size. There is normal right ventricular systolic function. Atria The left atrium is normal in size. Interatrial shunt cannot be excluded. The right atrium is likely dilated. Aortic Valve The aortic valve structure and function is likely normal. There is no aortic valve stenosis. There is no aortic valve regurgitation. Mitral Valve Likely normal mitral valve structure and function. There is trace mitral valve regurgitation. There is no mitral valve stenosis. Pulmonic Valve The pulmonic valve was not well visualized. Tricuspid Valve Likely normal tricuspid valve structure and function. There is trace tricuspid valve regurgitation. The right ventricular systolic pressure is normal. The right ventricular systolic pressure is 28 mmHg. Normal right atrial pressure. There is no evidence of pulmonary hypertension. Great Vessels The pulmonary artery was not well visualized. There is no dilatation of the ascending aorta measuring 3.20 cm. Venous The inferior vena cava is normal in size and collapses greater than 50% with inspiration. Pericardium/Pleural The pericardium was not well visualized. Prior Study Comparison No prior study available for comparison. Measurements 2D Linear Measurements IVSd: 0.96 0.6-0.9/0.6-1.0 cm LVIDd: 4.11 3.9-5.3/4.2-5.9 cm LVIDd Index: 2.07 2.4-3.2/2.2-3.1 cm/m2 LVIDs: 2.49 2.0-3.6 cm LVPWd: 0.94 0.7-1.1 cm LA Diam: 2.20 2.7-3.8/3.0-4.0 cm LAIDs Index: 1.11 1.5-2.3 cm/m2 LV Mass: 153.90 67-162/88-224 g LV Mass Index: 77.34 43-95/49-115 g/m2 LVOT Diam: 1.80 3.0+(-)1.3 cm 2D Systolic Function EF 4C: 71.20 >55% EF 2C: 70.60 >55% EF BiP: 71.50 >55% Mitral Valve MV Pk E: 0.72 MV PK A: 0.65 MV Decel Time: 108.00 E/A: 1.10 E'Lateral: 7.18 E'Medial: 6.42 E/E' Med: 11.30 E/E' Lat: 10.10 PHT: 31.00 MVA PHT: 7.10 Decel [place]: 6.73 Aortic Valve AoV Pk Clarence: 1.29 AoV Mn Clarence: 0.94 AoV VTI: 0.25 AoV Pk Grad: 7.00 Aov Mn Grad: 4.00 EMETERIO Cont.VTI: 2.00 LVOT LVOT Pk Clarence: 1.07 LVOT Mn [place]rence: 0.71 LVOT VTI: 0.20 LVOT Pk Grad: 5.00 LVOT Mn Grad: 2.00 LVOT Diam: 1.80 LVOT Area: 2.54 Diastolic Function MV Pk E: 0.72 MV Pk A: 0.65 E/A: 1.10 E'Medial: 6.42 E/E' Med: 11.30 E' Laterial: 7.18 E/E' Lat: 10.10 Right Ventricle TAPSE (mm): 21.30 TVS' Clarence: 11.60 Tricuspid Valve TR Pk Clarence: 2.49 TR Pk Grad: 25.00 RA Press: 3.00 RVSP: 28.00 Great Vessels Aorta Sinus of Valsalva: 3.30 2.0-3.5 cm Ao Asc: 3.20 2.1-3.4 cm Ao Arch: 2.20 Pulmonary Valve PV Pk Clarence: 1.19 Peak PV Grad: 6.00 Updated in Other Vendor System with Status of Final Ernst Ann MD electronically signed on 12/17/2023 11:18:47 AM with status of Final
== END ==
LOC: HO.CARD 13:04
PROVIDERS: PCP Internal Medicine; Visit Provider Internal Medicine
DX: I10 Essential (primary) hypertension (principal)
CPT/HCPCS: 93306

== ENCOUNTER → 2023-12-16 13:07 | Outpatient (BNV) | payer OTHER, SELFPAY | PROVIDERS: PCP Internal Medicine; Visit Provider Internal Medicine Cardiovascular Disease | DX: I51.89 Other ill-defined heart diseases (principal); I10 Essential (primary) hypertension | CPT/HCPCS: 93306 ==

== ENCOUNTER 2024-02-29 10:18 | Outpatient (AMB) | payer OTHER, SELFPAY ==
[2024-02-29 10:22] VITALS: BP 116/70; PULSE 94
--- NOTE | 2024-02-29 10:22 | A.OFFVIS_ITS ---
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: No Accompanied by: Self / Same As Patient Allergies ampicillin [AMPICILLIN] Allergy (Unknown, Verified 10/20/23 08:24) HIVES, rash on mouth penicillin V Allergy (Unknown, Verified 10/20/23 08:24) rash on mouth Penicillins [PENICILLINS] Allergy (Unknown, Verified 10/20/23 08:24) HIVES Sulfa (Sulfonamide Antibiotics) [SULFA (SULFONAMIDE ANTIBIOTICS)] Allergy (Un known, Verified 10/20/23 08:24) ALTERED WBC, blood cells level abnormal rosuvastatin Adverse Reaction (Unknown, Verified 10/20/23 08:24) myalgia, ^ cpk Ampicillin Allergy (Unknown, Uncoded 10/20/23 08:24) Hives Sulfa Drugs Allergy (Unknown, Uncoded 10/20/23 08:24) white blood cell reaction Medication List - Last Reconciled 02/29/24 by Forest Rios MD atorvastatin 10 mg PO BEDTIME calcium carb-D3-mag [id number] 333 mg-200 unit -133 mg-5 mg 1 tab PO DAILY cholecalciferol (vitamin D3) 25 mcg PO DAILY lactobacillus combination no.4 (Probiotic) 3,000 mmu cells PO DAILY lisinopril 5 mg PO DAILY multivitamin 1 tab PO DAILY vitamin B complex (B Complex-Vitamin B12 tablet) 1 tab PO DAILY HPI Comments Details: Ilda returns for follow-up. Recently seen in consultation regarding family history of cardiac issues. There is a family history of coronary disease/myocardial infarction in father as well as grandfather. Patient herself does not have any known cardiac issues. She states there is lot of stress overall. On lisinopril for hypertension. She also has a history of high lipids. On statins. She gets some sharp chest pains off and on but nothing clearly exertional. She has undergone an echocardiogram and coronary CTA. [facility] Medical History (Updated 02/29/24 @ 11:37 by Forest Rios MD) Family history of coronary artery disease Positive KRISTOPHER (antinuclear antibody) History of lichen planus Elevated liver transaminase level Hx of diverticulitis of colon Tinea corporis Subcutaneous nodule of right thumb Cervical cancer screening HTN (hypertension) Impaired fasting glucose Dyslipidemia No known health problems Surgical History Hx of dilation and curettage Family History Brother Prostate CA Brother Substance use disorder Brother Substance use disorder Maternal Grandmother History of breast cancer, Onset Age: 80 Father Hyperlipemia Hypertension Hx of myocardial infarction Mother Parkinson disease Sister Renal cancer Social History Housing: House Alcohol intake: current Alcohol intake frequency: a few times a week Alcohol type: wine Patient Tobacco Use Status: Never used Tobacco e-Cigarette/Vaping Use: Never Used service: No Current occupational status: employed Cognitive needs: No Hearing needs: No Vision needs: Yes Review of Systems Const Denies chills, Denies fatigue, Denies fever(s), Denies weight gain and Denies weight loss ENT Denies dizziness Card Denies chest pain, Denies leg edema, Denies lightheadedness, Denies palpitations, Denies dyspnea on exertion, Denies orthopnea and Denies other Resp Denies cough and Denies dyspnea on exertion GI Denies hematochezia and Denies change in stool character Musc Denies abnormal gait, Denies muscle weakness, Denies numbness, Denies radiating pain into limb and Denies tingling Neuro Denies abnormal gait, Denies dizziness, Denies numbness and Denies tingling Endo Denies fatigue and Denies palpitations Physical Exam Vital Signs: Last Vital Signs Pulse 94 02/29/24 10:22 BP 116/70 02/29/24 10:22 BMI result Body Mass Index 0.3 Const General: comfortable and no acute distress Orientation/consciousness: patient oriented x3 HEENT Other: Unremarkable Head: Yes normal to inspection Neck Neck: Yes normal visual inspection Chest Chest palpation & inspection: normal inspection of the chest Resp Auscultation: clear to auscultation bilaterally Cardio Palpation: normal PMI Heart sounds: S1 normal heart sound present, S2 normal heart sound present, no gallops, no murmurs and no rubs GI Palpation (GI): Soft to palpation Back/Spine/Pelvis Other: unremarkable Skin General skin exam: no rashes or lesions noted Neuro General: patient oriented x3 Extrem General: Yes normal to inspection Psych Mental Status: mental status grossly normal Assessment & Plan Assessment & Plan (1) Precordial chest pain: Code(s): R07.2 - Precordial pain Category: Medical Plan: In the coronary CTA, no evidence of atherosclerotic coronary disease. Chest pains noncardiac and does not require any further workup. (2) Right ventricular enlargement: Code(s): I51.7 - Cardiomegaly Category: Medical Plan: In the echocardiogram, mildly dilated right ventricle. Could be related to weight. We will also screen for obstructive sleep apnea. Schedule home sleep study. (3) Dyslipidemia: Code(s): E78.5 - Hyperlipidemia, unspecified Category: Medical Plan: Her cholesterol is quite high. Last LDL 184 mg/dL. She can continue statins for primary prevention. Orders: Orders RT home sleep study Today G47.33 - Obstructive sleep apnea (adult) (pediatric) Coding Level of Care Code Est Pt Level 3 (57997) Diagnoses Precordial chest pain R07.2 Right ventricular enlargement I51.7 Dyslipidemia E78.5
== END 2024-02-29 10:45 | disposition home or self-care (01) ==
PROVIDERS: PCP Internal Medicine; Visit Provider Internal Medicine
DX: R07.2 Precordial pain (principal); I51.7 Cardiomegaly; E78.5 Hyperlipidemia, unspecified
CPT/HCPCS: 99213

== ENCOUNTER 2024-03-22 13:32 | Outpatient (REF) | payer OTHER, SELFPAY ==
[2024-03-22 17:19] LABS: Influenza A PCR POSITIVE (Negative); Influenza B PCR NEGATIVE (Negative); Resp Syncy Virus RNA Qual PCR NEGATIVE (Negative); SARS COV2 PCR INHOUSE NEGATIVE (Negative)
== END 2024-03-22 13:33 | disposition home or self-care (01) ==
LOC: HO.LAB 13:32
PROVIDERS: PCP Internal Medicine; Visit Provider Nurse Practitioner Family
DX: J06.9 Acute upper respiratory infection, unspecified (principal)
CPT/HCPCS: 0241U

== ENCOUNTER 2024-03-22 13:32 | Outpatient (AMB) | payer OTHER, SELFPAY ==
[2024-03-22 13:33] VITALS: BP 120/82; PULSE 110; TEMP 37.1; O2SAT 97; BMI 30.9
--- NOTE | 2024-03-22 13:33 | AM.OFFWIN_ITS ---
Intake Vital Signs 03/22/24 13:33 Height 5 ft 7 in Weight 197 lb BMI 30.9 BP 120/82 Blood Pressure Location Rt brachial Position Sitting Pulse 110 H Pulse Source Pulse Oximeter Temp 98.8 F Temp Source Oral Pulse Oximetry (%) 97 Intake Visit Reasons: EP cough, chest congestion, headaches, chills Patient Tobacco Use Status: Never used Tobacco Allergies ampicillin [AMPICILLIN] Allergy (Unknown, Verified 03/22/24 13:33) HIVES, rash on mouth penicillin V Allergy (Unknown, Verified 03/22/24 13:33) rash on mouth Penicillins [PENICILLINS] Allergy (Unknown, Verified 03/22/24 13:33) HIVES Sulfa (Sulfonamide Antibiotics) [SULFA (SULFONAMIDE ANTIBIOTICS)] Allergy (Unknown, Verified 03/22/24 13:33) ALTERED WBC, blood cells level abnormal rosuvastatin Adverse Reaction (Unknown, Verified 03/22/24 13:33) myalgia, ^ cpk Ampicillin Allergy (Unknown, Uncoded 10/20/23 08:24) Hives Sulfa Drugs Allergy (Unknown, Uncoded 10/20/23 08:24) white blood cell reaction Do you need a note to return to daycare/school/sports/work: No HPI HPI Comments History of Present Illness Details 59 y/o female patient who presents to [facility] walk [facility] clinic with c/o URI s ymptoms. Reports cough, chest tightness, body chills and headaches since Tuesday. [facility] Medical History (Updated 03/22/24 @ 13:47 by Kaci Turner NP) Acute respiratory disease Family history of coronary artery disease Positive KRISTOPHER (antinuclear antibody) History of lichen planus Elevated liver transaminase level Hx of diverticulitis of colon Tinea corporis Subcutaneous nodule of right thumb Cervical cancer screening HTN (hypertension) Impaired fasting glucose Dyslipidemia No known health problems Surgical History Hx of dilation and curettage Family History Brother Prostate CA Brother Substance use disorder Brother Substance use disorder Maternal Grandmother History of breast cancer, Onset Age: 80 Father Hyperlipemia Hypertension Hx of myocardial infarction Mother Parkinson disease Sister Renal cancer Social History (Reviewed 02/29/24 @ 10:24 by MITCH Buckner Housing: House Alcohol intake: current Alcohol intake frequency: a few times a week Alcohol type: wine Patient Tobacco Use Status: Never used Tobacco e-Cigarette/Vaping Use: Never Used service: No Current occupational status: employed Cognitive needs: No Hearing needs: No Vision needs: Yes Review of Systems Const All systems reviewed & are unremarkable except as noted in HPI and below Physical Exam Vital Signs: Last Vital Signs Temp 98.8 F 03/22/24 13:33 Pulse 110 H 03/22/24 13:33 BP 120/82 03/22/24 13:33 Pulse Ox 97 03/22/24 13:33 BMI result Body Mass Index 30.9 Const General: comfortable Nutritional Appearance: obese Orientation/consciousness: oriented to time Resp Effort & Inspection: normal respiratory effort and able to speak in complete sentences Auscultation: clear to auscultation bilaterally, no crackles, no rales, no rhonchi and no wheezes Cardio Heart sounds: S1 normal heart sound present and S2 normal heart sound present Neuro General: oriented to time Assessment & Plan Assessment & Plan (1) Acute respiratory disease: Code(s): J06.9 - Acute upper respiratory infection, unspecified Plan: Ordered SARs Ordered Cough medicine Acetaminophen for pain relief REst and hydrate well. Orders: Orders SARS-CoV2/FLU/RSV Today J06.9 - Acute upper respiratory infection, unspecified Medications: New benzonatate 100 mg PO TID 90 caps 0RF J06.9 - Acute upper respiratory infection, unspecified Coding Level of Care Code Est Pt Level 4 (47412) Diagnoses Acute respiratory disease J06.9 Time Spent (min) 20
== END 2024-03-22 14:16 | disposition home or self-care (01) ==
PROVIDERS: PCP Internal Medicine; Visit Provider Nurse Practitioner Family
DX: J06.9 Acute upper respiratory infection, unspecified (principal)

== ENCOUNTER 2024-06-21 09:03 | Outpatient (REF) | payer OTHER, SELFPAY ==
[2024-06-21 10:57] LABS: Estimated Average Glucose 131 mg/dL; Hemoglobin A1c % 6.2 % (<6.0)
[2024-06-21 11:35] LABS: Alanine Aminotransferase 41 U/L (0-31); Aspartate Amino Transferase 29 U/L (5-31); Cholesterol 194 mg/dL (<200); HDL Cholesterol 55 mg/dL (>40); LDL Cholesterol Calculated 121 mg/dL (<100); Triglycerides 90 mg/dL (<150)
== END 2024-06-21 09:04 | disposition home or self-care (01) ==
LOC: HO.HMGCLDS 09:03
PROVIDERS: PCP Internal Medicine; Visit Provider Internal Medicine
DX: R74.01 Elevation of levels of liver transaminase levels (principal); R73.01 Impaired fasting glucose; E78.5 Hyperlipidemia, unspecified
CPT/HCPCS: 36415; 80061; 82550; 83036; 84450; 84460

== ENCOUNTER → 2024-08-30 10:00 | Outpatient (BNV) | payer OTHER, SELFPAY | PROVIDERS: PCP Internal Medicine; Visit Provider Internal Medicine | DX: Z12.31 Encounter for screening mammogram for malignant neoplasm of breast (principal) | CPT/HCPCS: 77063; 77067 ==

== ENCOUNTER 2024-08-30 10:01 | Outpatient (REF) | payer OTHER, SELFPAY ==
--- NOTE | ~2024-08-30 | MM_ITS ---
EXAMINATION: MM SCREENING DIGITAL BREAST TOMOSYNTHESIS, BILATERAL CLINICAL INFORMATION: Screening. Asymptomatic. COMPARISON: Mammography: Comparison is made with available priors TECHNIQUE: Digital breast mammography with tomosynthesis is performed in both the craniocaudal and mediolateral oblique views along with computer-aided detection (CAD). FINDINGS: The breasts are heterogeneously dense, which may obscure small masses (ACR BI-RADS breast composition Category c). There are no significant masses, abnormal calcifications, or other abnormalities. MM/MM tomosynthesis screening BI IMPRESSION: No mammographic evidence of malignancy. ASSESSMENT: BI-RADS BI-RADS 1 - Negative RECOMMENDATION: Routine annual mammography screening. 1 year F/U This examination should not preclude the clinical evaluation of a suspicious palpable abnormality. This patient's information was entered into a reminder system with a target due date for their next mammogram. Electronically signed by: Vanessa Adams DO 08/30/2024 10:55 AM EDT
--- OUTSIDE RECORDS SUMMARY | 2024-08-30 10:46 | XMS_ITS | Patient Health Record ---
[facility] Address [address] [place] [address] Care Team Providers Care Wireless Sales Manager Name Role Phone Raj CROCKETT, Isamar Head Primary Care Provider Un available Black, Dana Unavailable [phone] Allergies Allergen (clinical drug ingredient) Drug/Non Drug Allergy documented on EMR Reaction Allergy Type Onset Date Status Penicillin (uncoded) rash on mouth Allergy Active Substance with sulfonamide structure and antibacterial mechanism of action (substance) sulfa (uncoded) abnormal blood cell level & high CPK Allergy Active amoxicillin Amoxicillin rash Drug Allergy Act linda ampicillin Ampicillin rash on mouth Drug Allergy A ctive rosuvastatin Rosuvastatin Calcium myalgia Drug Allergy Active Reason For Referral No Information Medications Medication SIG (Take, Route, Frequency, Duration) Notes Start Date End Date Status Vitamin D3 50 MCG (1999) 1 capsule Orally Once a day; Duration: 30 day(s) Active Calcium Active Vitamin E 200 UNIT 1 capsule Orally Onc e a day; Duration: 30 day(s) Active Vitamin B Complex-C Active Co Q 10 10 MG 1 capsule with a jose manuel l Orally Once a day; Duration: 30 day(s) Active Roscoe 3 1000 MG 1 capsule Orally Onc e a day; Duration: 30 day(s) Active Social History Tobacco Use: Social History Observation Description Date Details (start date - stop date) Never Smoker NA - NA Tobacco Use/Smoking Question Answer Notes Are you a: nonsmoker Additional Findings: Tobacco Non-User Aggressive non-smoker Alcohol Screen Question Answer Notes Did you have a drink contain ing alcohol in the past year? Yes How often did you have a dri nk containing alcohol in the past year? 2 to 3 times a week (3 points) How many drinks did you have on a typical day when you were drinking in the past year? 1 or 2 drinks (0 point) How often did you have 6 or more drinks on one occasion in the past year? Never (0 point) Points 3 Interpretation Positive Tobacco use other than smoking: Question Answer Notes Are you an other tobacco user? No Problems No Known Problems Plan Of Treatment Pending Test Test Name Order Date *Liver Function Test (LFT) 11/02/2019 *Liver Function Test (LFT) 12/10/2019 Insurance Providers Payer Name Payer Address Payer Phone Subscriber Number Group Number Insured Name Patient Relationship to Insured Coverage Start Date Coverage End Date [employer] Benefits [address] [address] [place] [id number] Ilda Nelson Self - patient is the insured Medical (General) History Medical History History ICD Code Diverticulosis Bunion osteoarthritis KRISTOPHER + Vitamin D deficiency Spondylosis Actinic keratoses Arthritis Back pain CAD (Cholesterol) Osteoporosis Scarlet fever chronic sinusitis Warts Chicken pox Infertility Surgical History Surgery Date(Month/Year) ovarian surgery D&C 2001 toe nail removal 1983
== END 2024-08-30 10:02 | disposition home or self-care (01) ==
LOC: HO.MAMMO 10:01
PROVIDERS: PCP Internal Medicine; Visit Provider Internal Medicine
DX: Z12.31 Encounter for screening mammogram for malignant neoplasm of breast (principal)
CPT/HCPCS: 77063; 77067

== ENCOUNTER 2024-11-01 10:22 | Outpatient (AMB) | payer OTHER, SELFPAY ==
[2024-11-01 10:31] VITALS: BP 124/78; PULSE 107; RESP 16; TEMP 36.8; O2SAT 98; BMI 31.3
--- NOTE | 2024-11-01 10:31 | A.OFFPC_ITS ---
Vital Signs 11/01/24 10:31 Height 5 ft 7 in Weight 200 lb BMI 31.3 BP 124/78 Blood Pressure Location Lt brachial Position Sitting Respiration 16 Pulse 107 H Pulse Source Pulse Oximeter Temp 98.3 F Temp Source Oral Pulse Oximetry (%) 98 Oxygen Delivery Method Room Air Intake Visit Reasons: PE Intake Note: Pt is here today for her PE: Last mammogram 08/30/24, papsmear 10/22/21, colonoscopy 03/20/18 Allergies ampicillin (AMPICILLIN) Allergy (Unknown, Verified 11/01/24 10:33) HIVES, rash on mouth penicillin V Allergy (Unknown, Verified 11/01/24 10:33) rash on mouth Penicillins (PENICILLINS) Allergy (Unknown, Verified 11/01/24 10:33) HIVES Sulfa (Sulfonamide Antibiotics) (SULFA (SULFONAMIDE ANTIBIOTICS)) Allergy (Unknown, Verified 11/01/24 10:33) ALTERED WBC, blood cells level abnormal rosuvastatin Adverse Reaction (Unknown, Verified 11/01/24 10:33) myalgia, ^ cpk Ampicillin Allergy (Unknown, Uncoded 11/01/24 10:33) Hives Sulfa Drugs Allergy (Unknown, Uncoded 11/01/24 10:33) white blood cell reaction Medication List - Last Reconciled 11/01/24 by Isamar Anthony MD atorvastatin 10 mg PO BEDTIME calcium carb-D3-mag [id number] 333 mg-200 unit -133 mg-5 mg 1 tab PO DAILY cholecalciferol (vitamin D3) 25 mcg PO DAILY lactobacillus combination no.4 (Probiotic) 3,000 mmu cells PO DAILY lisinopril 5 mg PO DAILY multivitamin 1 tab PO DAILY Tobacco use date assessed: 11/01/24 Dental Screening Dental Screen Date: 11/01/24 Did you have a dental visit in the last 12 months?: Yes Did you have a dental problem in the last 6 months where you did not have access to dental care?: No Was dental information given to patient?: Patient has dentist [facility] Medical History (Updated 11/01/24 @ 11:14 by Isamar Anthony MD) Acute respiratory disease Family history of coronary artery disease Positive KRISTOPHER (antinuclear antibody) History of lichen planus Elevated liver transaminase level Hx of diverticulitis of colon Tinea corporis Subcutaneous nodule of right thumb Cervical cancer screening HTN (hypertension) Impaired fasting glucose Dyslipidemia No known health problems Surgical History Hx of dilation and curettage Family History (Updated 06/19/24 @ 15:26 by Isamar Anthony MD) Brother Prostate CA CVA (cerebral vascular accident) Brother Substance use disorder CVA (cerebral vascular accident) Brother Substance use disorder Maternal Grandmother History of breast cancer, Onset Age: 80 Father Hyperlipemia Hypertension Hx of myocardial infarction Mother Parkinson disease Sister Renal cancer Social History Housing: House Alcohol intake: current Alcohol intake frequency: a few times a week Alcohol type: wine Patient Tobacco Use Status: Never used Tobacco e-Cigarette/Vaping Use: Never Used service: No Current occupational status: employed Cognitive needs: No Hearing needs: No Vision needs: Yes Questionnaire PHQ-9 Over the last 2 weeks, how often have you been bothered by any of the following problems? 1. Little interest or pleasure in doing things: not at all 2. Feeling down, depressed, or hopeless: not at all 3. Trouble falling or staying asleep, or sleeping too much: not at all 4. Feeling tired or having little energy: not at all 5. Poor appetite or overeating: not at all 6. Feeling bad about yourself - or that you are a failure or have let yourself or your family down: not at all 7. Trouble concentrating on things, such as reading the newspaper or watching television: not at all 8. Moving or speaking so slowly that other people could have noticed. Or the opposite - being so fidgety or restless that you have been moving around a lot more than usual: not at all 9. Thoughts that you would be better off or of hurting yourself in some way: not at all Total score: 0 Source: Developed by Drs. Wolf Pickering, Annie Singh, Leonid Fleming and colleagues, with an educational markie from [employer]. Thrive Questionnaire Date Thrive assessed: 11/01/24 I am a: Patient What is your living situation today?: I have a steady place to live Within the past 12 months, did the food you bought not last and you didn't have the money to get more?: Never true Within the past 12 months, did you worry whether your food would run out before you got money to buy more?: Never true Do you have trouble paying for medicines?: No Do you have trouble getting transportation to medical appointments?: No Do you have trouble paying your heating and electricity bill?: No Do you have trouble taking care of your child, family member or friend?: No Do you have trouble with day-to-day activities such as bathing, preparing meals, shopping, managing finances, etc.?: No Are you currently unemployed and looking for a job?: Yes Are you interested in more education?: No Please select the resources that you would like help with: None Currently or been in a relationship where the following occur: No concerns reported THRIVE Score: 0 AUDIT C Alcohol Use Questionnaire (AUDIT-C) 1. How often do you have a drink containing alcohol?: Monthly or less 2. How many drinks containing alcohol do you have on a typical day when you are drinking?: 1 or 2 3. How often do you have six or more drinks on one occasion?: Never Total Score: 1 Score Reviewed/Action Taken: Yes LYNDSEY-7 AMB Questionnaire LYNDSEY-7 Date LYNDSEY - 7 assessed: 11/01/24 Feeling nervous, anxious, or on edge: 0 = Not at all Not being able to stop or control worryin = Not at all Worrying too much about different things: 0 = Not at all Trouble relaxin = Not at all Being so restless that it is hard to sit still: 0 = Not at all Becoming easily annoyed or irritable: 0 = Not at all Feeling afraid as if something awful might happen: 0 = Not at all Total LYNDSEY-7 score (0-4 normal; 5-9 mild; 10-14 moderate; 15-21 severe): 0 Source: Developed by Drs. Wolf Pickering, Annie Singh, Leonid Fleming and colleagues, with an educational markie from [email or web address]. LYNDSEY-7 Assessment Billing LYNDSEY-7 Assessment Tool: LYNDSEY-7 Assessment 11009 Physical exam (Primary Care) Vital Signs: Last Vital Signs Temp 98.3 F 11/01/24 10:31 Pulse 107 H 11/01/24 10:31 Resp 16 11/01/24 10:31 BP 124/78 11/01/24 10:31 Pulse Ox 98 11/01/24 10:31 Oxygen Delivery Method Room Air 11/01/24 10:31 BMI result Body Mass Index 31.3 Tobacco/Smoking Status: Tobacco use Status Tobacco use date assessed 11/01/24 11/01/24 10:42 Patient Tobacco Use Status Never used Tobacco 11/01/24 10:42 e-Cigarette/Vaping Use Never Used 11/01/24 10:42 PHQ-9: PHQ-9 Score PHQ-9: Total score 0 11/01/24 10:53 Thrive Assessment: Date of Thrive Assessment Date Thrive assessed 11/01/24 11/01/24 10:42 Currently or been in a relationship where the following occur: No concerns reported Office Procedures Flu Questionnaire Does the patient have a severe egg allergy?: No Does the patient have severe life threatening allergies?: No Does the patient have a fever or illness today?: No Has the patient ever had Guillain-[place] Syndrome?: No Has the patient ever had any past reaction to a flu shot?: No Immunizations Fluarix [id number] (PF) 45 mcg (15 mcg x 3)/0.5 mL IM syringe Performing Provider: Isamar Anthony MD Performing Location: [facility] Administered by: Inez Ayoub CMA on 11/01/24 10:48 Dose Route Admin Location Dispensed Lot Number Expiration Date [facility] 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 0.5 mL IM Left Deltoid 0.5 mL [id number] 08/06/25 75450-985-61 [employer] VIS Given Date VIS Provided VIS Publication Date 11/01/24 Single Vaccine 24 Eligibility Eligibility Date Funding Source Not [facility] Eligible 11/01/24 Private Coding Diagnoses Primary hypertension I10 Hypertension type: primary hypertension Dyslipidemia E78.5 Impaired fasting glucose R73.01 History of lichen planus Z87.2 Annual visit for general adult medical examination with abnormal findings Z00.01 Skin cancer screening Z12.83 Family history of melanoma Z80.8 Additional Codes LYNDSEY-7 Assessment Billing - LYNDSEY-7 Assessment Tool: LYNDSEY-7 Assessment 06199 ([id number]) Assessment & Plan Assessment & Plan (1) HTN (hypertension): Code(s): I10 - Essential (primary) hypertension Category: Medical Qualifiers: Hypertension type: primary hypertension Qualified Code(s): I10 - Essential (primary) hypertension (2) Dyslipidemia: Code(s): E78.5 - Hyperlipidemia, unspecified Category: Medical (3) Impaired fasting glucose: Code(s): R73.01 - Impaired fasting glucose Category: Medical (4) History of lichen planus: Code(s): Z87.2 - Personal history of diseases of the skin and subcutaneous tissue Category: Medical (5) Annual visit for general adult medical examination with abnormal findings: Code(s): Z00.01 - Encounter for general adult medical examination with abnormal findings (6) Skin cancer screening: Code(s): Z12.83 - Encounter for screening for malignant neoplasm of skin (7) Family history of melanoma: Code(s): Z80.8 - Family history of malignant neoplasm of other organs or systems Orders: Orders Influenza [id number] Immunization Today Z23 - Encounter for immunization Lipid Panel Today E78.5 - Hyperlipidemia, unspecified, I10 - Essential (primary) hypertension, R73.01 - Impaired fasting glucose, Z00.01 - Encounter for general adult medical examination with abnormal findings, Z87.2 - Personal history of diseases of the skin and subcutaneous tissue Complete Blood Count Auto Diff Today E78.5 - Hyperlipidemia, unspecified, I10 - Essential (primary) hypertension, R73.01 - Impaired fasting glucose, Z00.01 - Encounter for general adult medical examination with abnormal findings, Z87.2 - Personal history of diseases of the skin and subcutaneous tissue Comprehensive [place]. Panel Fast Today E78.5 - Hyperlipidemia, unspecified, I10 - Essential (primary) hypertension, R73.01 - Impaired fasting glucose, Z00.01 - Encounter for general adult medical examination with abnormal findings, Z87.2 - Personal history of diseases of the skin and subcutaneous tissue Vitamin D 25-OH Total Today E78.5 - Hyperlipidemia, unspecified, I10 - Essential (primary) hypertension, R73.01 - Impaired fasting glucose, Z00.01 - Encounter for general adult medical examination with abnormal findings, Z87.2 - Personal history of diseases of the skin and subcutaneous tissue Hemoglobin A1c Today E78.5 - Hyperlipidemia, unspecified, I10 - Essential (primary) hypertension, R73.01 - Impaired fasting glucose, Z00.01 - Encounter for general adult medical examination with abnormal findings, Z87.2 - Personal history of diseases of the skin and subcutaneous tissue Referrals Dermatology Referral Z12.83 - Encounter for screening for malignant neoplasm of skin, Z80.8 - Family history of malignant neoplasm of other organs or systems Medications: Refilled atorvastatin 10 mg PO BEDTIME 90 tabs 4RF E78.5 - Hyperlipidemia, unspecified lisinopril 5 mg PO DAILY 90 tabs 4RF
== END 2024-11-01 11:24 | disposition home or self-care (01) ==
LOC: HO.HMCC 10:23
PROVIDERS: PCP Internal Medicine; Visit Provider Internal Medicine
DX: Z23 Encounter for immunization (principal)

== ENCOUNTER → 2024-11-01 10:22 | Outpatient (BNVA) | payer OTHER, SELFPAY | PROVIDERS: PCP Internal Medicine; Visit Provider Internal Medicine | DX: Z00.01 Encounter for general adult medical examination with abnormal findings (principal); Z23 Encounter for immunization; I10 Essential (primary) hypertension; E78.5 Hyperlipidemia, unspecified; R73.01 Impaired fasting glucose; Z79.899 Other long term (current) drug therapy; Z80.8 Family history of malignant neoplasm of other organs or systems; Z13.31 Encounter for screening for depression; Z13.39 Encounter for screening examination for other mental health and behavioral disorders | CPT/HCPCS: 90471; 90656; 96127 ==